=== PATIENT | male | born 1935 | race Caucasian/White ===

== ENCOUNTER 2018-10-25 21:28 | Inpatient (IN) | payer MEDICARE, SELFPAY ==
--- NOTE | 2018-10-25 21:33 | ED.GENADULT ---
HPI - General Adult General Chief complaint: Fall Stated complaint: GLF Lt Hip Pain Time Seen by Provider: 10/25/18 21:28 Source: patient and EMS Mode of arrival: EMS Limitations: no limitations History of Present Illness HPI narrative: 83-year-old male here for evaluation of left hip pain. 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 He was unable to ambulate afterwards. Does have pain in his left hip. Has chronic pain in his right shoulder and states that his shoulder feels better today than what it did yesterday. He did not hit his head. No loss of consciousness. Not on blood thinners. No neck pain. Brought in by EMS. Related Data Home Medications Medication Instructions Recorded Confirmed amlodipine 10 mg PO DAILY 10/25/18 10/25/18 aspirin [Adult Low Dose Aspirin] 81 mg PO DAILY 10/25/18 10/25/18 cholecalciferol (vitamin D3) 1,000 unit PO DAILY 10/25/18 10/25/18 [Vitamin D3] finasteride 5 mg PO DAILY 10/25/18 10/25/18 furosemide 20 mg PO QAM 10/25/18 10/25/18 losartan 100 mg PO DAILY 10/25/18 10/25/18 metoprolol succinate 100 mg PO DAILY 10/25/18 10/25/18 tamsulosin 0.4 mg PO DAILY 10/25/18 10/25/18 Allergies Allergy/AdvReac Type Severity Reaction Status Date / Time Hydrochlorothiazide Allergy Unknown Uncoded 07/09/17 12:07 Lisinopril Allergy Unknown Uncoded 07/09/17 12:07 Rosuvastatin Allergy Unknown Uncoded 07/09/17 12:07 Review of Systems Constitutional Denies headache(s) and Denies weakness ENT Ears, Nose, Mouth, and Throat: Denies vertigo, Denies dizziness, Denies headache(s) and Denies disequilibrium Cardiovascular Denies chest pain, Denies syncope and Denies dyspnea Respiratory Denies dyspnea Gastrointestinal Gastrointestinal: Denies abdominal pain Musculoskeletal Denies tingling Comments: Left hip pain, right shoulder pain Integumentary/Breasts Denies rash Neurologic Denies burning sensations, Denies confusion, Denies vertigo, Denies dizziness, Denies syncope, Denies headache(s), Denies tingling, Denies paresthesias, Denies disequilibrium and Denies weakness Psychiatric Denies confusion Hematologic/Lymphatic Denies easy bleeding and Denies easy bruising [facility] Medical History (Updated 10/25/18 @ 22:35 by Rex Cotto DO) Hypertension (Acute) Social History housing: assisted living facility Social History housing: assisted living facility Exam Initial Vital Signs Initial Vital Signs: Vital Signs Temperature 98.4 F 10/25/18 21:34 Pulse Rate 81 10/25/18 21:34 Respiratory Rate 20 10/25/18 21:34 Blood Pressure 245/95 H 10/25/18 21:34 Pulse Oximetry 95 10/25/18 21:34 Const General: cooperative, comfortable, well developed, well groomed and No acute distress Orientation: alert and awake HENMT Head: normal to inspection and normocephalic Resp Effort & Inspection: normal respiratory effort Auscultation: clear to auscultation bilaterally Cardio Rate: regular rate Rhythm: regular rhythm Pulses: radial pulses present and dorsalis pedis present on the left GI Inspection: non-distended Palpation: soft Back/Spine/Pelvis Cervical Spine: No cervical spasm and No cervical spinal tenderness Skin Lesions: no lesions Rashes: no rashes Neuro General: awake Cognition: normal cognition Speech: speech normal Extrem General: No edema Other: Patient able to straight leg raise on the right. Patient able to do somewhat of a leg raise on the left however limited secondary to pain. Does have tenderness palpation around the left hip Psych Appearance: grossly normal and well kempt Scores GCS Radha coma scale eye opening: Spontaneous Radha coma scale verbal response: Orientated Radha coma scale motor response: Obey commands Radha coma scale total score: 15 Course Orders Ordered: ED Orders 10/25/18 21:50 Complete Blood Count AUTO DIFF Stat Comprehensive Metabolic Panel Stat Lipase Stat Type and Screen Stat 10/25/18 21:54 XR hip w pel if done LT 2V Stat 10/25/18 22:17 Consult to Physician Stat Vital Signs - 8 hr 10/25/18 21:34 Temperature 98.4 F Pulse Rate 81 Respiratory Rate 20 Blood Pressure 245/95 H Pulse Oximetry 95 Medical Decision Making Lab Data Lab results reviewed: Yes I reviewed the patient's lab results. Result diagrams: 10/25/18 21:50 10/25/18 21:50 Lab Results 10/25/18 10/25/18 Range/Units 21:50 21:50 WBC 10.0 (4.5-11.0) X10^3/uL RBC 4.97 (4.5-5.9) X10^6/uL Hgb 15.4 (13.5-17.5) g/dL Hct 45.3 (41-53) % MCV 91.1 (80-100) fL MCH 31.1 (26-34) PG MCHC 34.1 (30-36) % RDW 14.6 (11.6-14.8) % Plt Count 263 (150-400) X10^3/uL Neut % (Auto) 81.6 H (50-75) % Lymph % (Auto) 10.2 L (25-40) % [place] % (Auto) 6.7 (3-14) % Eos % (Auto) 1.1 L (2-4) % Baso % (Auto) 0.4 (0-2) % Neut # (Auto) 8100 H (7061-2386) /uL Lymph # (Auto) 1000 L (9043-2311) /uL [place] # (Auto) 700 (0-900) /uL Eos # (Auto) 100 (0-450) /uL Baso # (Auto) 0 (0-100) /uL Sodium 141 (137-145) mmol/L Potassium 3.2 L (3.4-5.1) mmol/L Chloride 105 (98-107) mmol/L Carbon Dioxide 29 (22-32) mmol/L BUN 17 (9-20) mg/dL Creatinine 0.90 (0.66-1.25) mg/dL Estimated GFR > 60.0 (>60) mL/min BUN/Creatinine Ratio 18.9 (6-22) Glucose 113 H (80-110) mg/dL Calcium 9.9 (8.4-10.2) mg/dL Total Bilirubin 0.7 (0.2-1.3) mg/dL AST 18 (17-59) IU/L ALT 24 (21-72) IU/L Alkaline Phosphatase 105 (38-126) U/L Total Protein 7.4 (6.3-8.2) g/dL Albumin 4.1 (3.5-5.0) g/dL Globulin 3.3 (1.7-4.1) g/dL Albumin/Globulin Ratio 1.2 (1.0-2.8) Lipase 93 (23-300) U/L Imaging Data Left hip x-ray: Attestation: I personally reviewed and interpreted this imaging study as follows: My impression: Left femoral neck fracture ECG Data Attestation: I personally reviewed and interpreted this ECG as follows: Prior ECG tracings: not available for review Interpretation: Sinus rhythm Ventricular rate 87 Normal axis Frequent PACs Normal QRS Normal QTC Nonspecific ST T wave changes MDM Narrative Medical decision making narrative: Patient with a left femoral neck fracture on the x-ray. This does appear to be a mechanical fall. He had no prodromal symptoms prior to the fall. He is not on blood thinners. I did discuss the case with Dr. Booth with Orthopedics. A consult was placed for him. Discussed the case with CANDICE Johns the night hospitalist who will admit the patient. Discussed admission with the patient and his daughter was at bedside. They expressed understanding and agreement plan. Discharge Plan Departure Patient Disposition: Admitted As Inpatient Clinical Impression: Closed hip fracture Qualifiers: Encounter type: initial encounter Laterality: left Qualified Code(s): S72.002A - Fracture of unspecified part of neck of left femur, initial encounter for closed fracture Hypertension Qualifiers: Hypertension type: unspecified Qualified Code(s): I10 - Essential (primary) hypertension Admit Date/Time: 10/25/18 22:20 Admit Provider: Stefania Johns
[2018-10-25 21:34] VITALS: BP 245/95; PULSE 81; RESP 20; TEMP 36.9; O2SAT 95
--- NOTE | 2018-10-25 21:54 | DI.RAD.S_ITS ---
PROCEDURE: XR HIP W PEL IF DONE LT 2V INDICATIONS: Left hip pain after fall TECHNIQUE: AP pelvis with lateral view(s) of the left hip(s). COMPARISON: None. FINDINGS: Bones: No fractures or dislocations. Severe right hip osteoarthritic degenerative changes with joint space narrowing, subchondral sclerosis, subchondral cyst formation, marginal osteophytosis. There is deformity of the left humeral head/neck may be due to trauma versus osteoarthritis. Postsurgical changes compatible with right hip arthroplasty. Pelvic ring appears intact. No suspicious bony lesions. Soft tissues: The visualized bowel gas pattern is normal. No suspicious soft tissue calcifications. IMPRESSION: Deformity of the left humeral head and neck which could be due to osteoarthritis versus traumatic injury. Recommend CT or MRI scan of the left hip for further evaluation. Dictated by: Caren Lilly MD, PhD on 10/26/2018 at 8:11 Approved by: Caren Lilly MD, PhD on 10/26/2018 at 8:14
[2018-10-25 22:04] LABS: Add Manual Diff / Slide Review NO; Basophils Absolute Auto 0 /uL (0-100); Basophils Percent Auto 0.4 % (0-2); Eosinophils Absolute Auto 100 /uL (0-450); Eosinophils Percent Auto 1.1 % (2-4); Hematocrit 45.3 % (41-53); Hemoglobin 15.4 g/dL (13.5-17.5); Lymphocytes Absolute Auto 1000 /uL (1100-4500); Lymphocytes Percent Auto 10.2 % (25-40); Mean Corpuscular HGB Conc 34.1 % (30-36); Mean Corpuscular Hemoglobin 31.1 PG (26-34); Mean Corpuscular Volume 91.1 fL (80-100); Monocytes Absolute Auto 700 /uL (0-900); Monocytes Percent Auto 6.7 % (3-14); Neutrophils Absolute Auto 8100 /uL (1500-7000); Neutrophils Percent Auto 81.6 % (50-75); Platelet Count 263 X10^3/uL (150-400); Red Blood Cell Count 4.97 X10^6/uL (4.5-5.9); Red Cell Distribution Width 14.6 % (11.6-14.8)
[2018-10-25 22:11] LABS: Alanine Aminotransferase 24 IU/L (21-72); Albumin 4.1 g/dL (3.5-5.0); Albumin Globulin Ratio 1.2 (1.0-2.8); Alkaline Phosphatase 105 U/L (38-126); Aspartate Aminotransferase 18 IU/L (17-59); BUN Creatinine Ratio 18.9 (6-22); Bilirubin Total 0.7 mg/dL (0.2-1.3); Blood Urea Nitrogen 17 mg/dL (9-20); Calcium 9.9 mg/dL (8.4-10.2); Carbon Dioxide 29 mmol/L (22-32); Chloride 105 mmol/L (98-107); Estimated Glomerular Filt Rate > 60.0 mL/min (>60); Globulin 3.3 g/dL (1.7-4.1); Glucose 113 mg/dL (80-110); HEMOLYSIS < 15 (0-50); Lipase 93 U/L (23-300); Potassium 3.2 mmol/L (3.4-5.1); Sodium 141 mmol/L (137-145); Total Protein 7.4 g/dL (6.3-8.2)
[2018-10-25 22:41] VITALS: BP 201/87; PULSE 86; RESP 18; O2SAT 100
--- NOTE | 2018-10-25 22:55 | DI.RAD.S_ITS ---
PROCEDURE: XR SHOULDER RT MIN 2V INDICATIONS: pain after fall TECHNIQUE: 2 views of the shoulder were acquired. COMPARISON: None. FINDINGS: Bones: No fractures or dislocations. No suspicious bony lesions. Visualized ribs appear intact. Severe right glenohumeral joint osteoarthritis. Soft tissues: No suspicious soft tissue calcifications. IMPRESSION: No fracture. No acute osseous lesion. If symptoms and/or clinical suspicion for pathology persists, further assessment with repeat radiographs (7-10 days) or advanced imaging (e.g. CT, MRI or bone scan) may be helpful. Dictated by: Caren Lilly MD, PhD on 10/26/2018 at 8:16 Approved by: Caren Lilly MD, PhD on 10/26/2018 at 8:17
--- NOTE | 2018-10-25 23:17 | PM.HP.1 ---
History of Present Illness Date Patient Seen: 10/25/18 Time Patient Seen: 22:45 Chief complaint: GLF Left Hip Pain Narrative: Jacob Rosenbaum is an 83-year-old male resident at [facility] in [place] who was in his usual state of health and was reaching for a book on the book shelf when he bent over and fell on his right shoulder and left hip. He is a bit of a difficult historian as he does not appear to be oriented to time. Apparently this occurred yesterday and was not brought in until today. The daughter and son-in-law are in the room and state that when he called them to let them know that he had fallen, they thought he was going to go to [facility] and quickly found out that he had actually directed the ambulance to take him to [facility]. He does endorse pain on his left hip but denies any pain in either of her shoulders. He did state that he has chronic pain in his left shoulder he states due to having 8 cardiac stents placed approximately 2 years ago at [facility] in [place]. 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 He has a PCP, Dr. Goldberg in [place] and has been being worked up for lower extremity swelling. He had labs drawn at Dr. Goldberg' office and a chest x-ray done at [facility] on Friday of this week and was due to have a follow-up appointment with him next Friday. He states he has been very dizzy and when he gets up from a sitting or lying position he gets very lightheaded and has had frequent falls as a result of this. He denies shortness of breath, palpitations, chest pain, nausea or vomiting, abdominal pain, diarrhea, peripheral neuropathy. He does endorse having urinary frequency and incontinence but was unable to tell me how long this has been going on. He also states he has had foot swelling that started shortly after being admitted [facility] and it is presumed that their diet may be contributing to his increased swelling. He did have some episodes of low blood pressure however this seems to have subsided. Patient History Medical History (Updated 10/25/18 @ 23:39 by DARIA Arias) CHF (congestive heart failure) (Suspected) Urinary incontinence (Chronic) BPH (benign prostatic hyperplasia) (Chronic) Fracture of femoral neck, left, closed (Acute) Hyperlipidemia (Chronic) Hypertension (Acute) Surgical History (Updated 10/25/18 @ 23:39 by DARIA Arias) History of right hip replacement (Chronic) History of coronary artery stent placement (Chronic) Hx of CABG (Chronic) Family History (Updated 10/25/18 @ 23:34 by DARIA Arias) Mother Polio Father No problems noted. Social History housing: assisted living facility Family & Social History Family History (Updated 10/25/18 @ 23:34 by DARIA Arias) Mother Polio Father No problems noted. 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 Tobacco & Substance use: Forty year pack history, quit 20 years ago Denies alcohol use Denies illegal drug use or history of Meds Home Medications Medication Instructions Recorded Confirmed Type amlodipine 10 mg PO DAILY 10/25/18 10/25/18 History aspirin [Adult Low Dose Aspirin] 81 mg PO DAILY 10/25/18 10/25/18 History cholecalciferol (vitamin D3) 1,000 unit PO DAILY 10/25/18 10/25/18 History [Vitamin D3] finasteride 5 mg PO DAILY 10/25/18 10/25/18 History furosemide 20 mg PO QAM 10/25/18 10/25/18 History losartan 100 mg PO DAILY 10/25/18 10/25/18 History metoprolol succinate 100 mg PO DAILY 10/25/18 10/25/18 History tamsulosin 0.4 mg PO DAILY 10/25/18 10/25/18 History Allergies Allergy/AdvReac Type Severity Reaction Status Date / Time Hydrochlorothiazide Allergy Unknown Uncoded 07/09/17 12:07 Lisinopril Allergy Unknown Uncoded 07/09/17 12:07 Rosuvastatin Allergy Unknown Uncoded 07/09/17 12:07 Review of Systems Review of Systems All systems reviewed & are unremarkable except as noted in HPI and below Exam Vital Signs (past 8 hours): - 10/25/18 21:34 10/25/18 22:41 Temperature 98.4 F Pulse Rate 81 86 Respiratory Rate 20 18 Blood Pressure 245/95 H Blood Pressure [Right Arm] 201/87 H Pulse Oximetry 95 100 Oxygen Delivery Method Room Air Narrative Exam Narrative: Gen: Alert, oriented 83 y.o. well-developed male appears comfortable HEENT: normocephalic, atraumatic, conjunctiva clear, sclera non-icteric, oral mucosa pink and moist Neck: supple, full ROM Resp: Lungs CTA, non-labored breathing CV: RRR, no murmur or rubs Abd: soft, non-tender, normoactive BTs Skin: no lesions or rashes, dry and intact Neuro: Oriented to person and place however he is not oriented to time Extremities: Left leg is contracted upwards however he is able to lift it approximately 4 inches off the bed Psych: Pleasant, normal mood and affect Objective Labs Result Diagrams: 10/25/18 21:50 10/25/18 21:50 Labs: Laboratory Results - last 24 hr 10/25/18 10/25/18 10/25/18 21:50 21:50 21:50 WBC 10.0 RBC 4.97 Hgb 15.4 Hct 45.3 MCV 91.1 MCH 31.1 MCHC 34.1 RDW 14.6 Plt Count 263 Neut % (Auto) 81.6 H Lymph % (Auto) 10.2 L [place] % (Auto) 6.7 Eos % (Auto) 1.1 L Baso % (Auto) 0.4 Neut # (Auto) 8100 H Lymph # (Auto) 1000 L [place] # (Auto) 700 Eos # (Auto) 100 Baso # (Auto) 0 Sodium 141 Potassium 3.2 L Chloride 105 Carbon Dioxide 29 BUN 17 Creatinine 0.90 Estimated GFR > 60.0 BUN/Creatinine Ratio 18.9 Glucose 113 H Calcium 9.9 Total Bilirubin 0.7 AST 18 ALT 24 Alkaline Phosphatase 105 Total Protein 7.4 Albumin 4.1 Globulin 3.3 Albumin/Globulin Ratio 1.2 Lipase 93 Blood Type A Positive Antibody Screen Negative Assessment & Plan Assessment & Plan narrative: Jacob Rosenbaum is a pleasant 83-year-old male who had a mechanical fall at his assisted living facility and sustained a left femoral neck fracture. He will be admitted to the service of the hospitalists and Dr. Booth has graciously agreed to provide orthopedic consultation. 1. Left impacted femoral neck fracture, acute, present on admission Orthopedic surgery to consult Brush catheter has been placed due to current immobility X-ray of the affected shoulder was done and there does not appear to be a fracture Patient currently on a heart healthy diet, NPO will be ordered 1 night prior to surgery if he has it done here 2. Suspected congestive heart failure, intermittent Patient has had recent lower extremity swelling, on Friday had labs drawn and a chest x-ray done at [facility] Brain naturetic peptide is pending Complete echocardiogram to be done tomorrow May need cardiology consult or cardiology clearance for surgery 3. 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 Essential hypertension, stable, present on admission Continue home doses of amlodipine, losartan and metoprolol Patient is admitted as an inpatient as his stay is anticipated to exceed 2 midnights. FEN: 0.45 NS at 100 ml/hour, heart healthy diet, chemistries in the am VTE Prophylaxis: Bilateral SCDs Disposition: Likely rehab post surgery Code status: Full Code Admission time: 75 minutes Meds reconciled: Partial based on current med list Time Spent With Patient Time with patient: 25 - 35 minutes Scores GCS [place] coma scale eye opening: Spontaneous Radha coma scale verbal response: Orientated [place] coma scale motor response: Obey commands [place] coma scale total score: 15 Quality VTE Deep Vein Thrombosis/Pulmonary Embolism Present on Admission: No
--- NOTE | 2018-10-25 23:41 | P.HP_ITS ---
History of Present Illness Date Patient Seen: 10/25/18 Time Patient Seen: 22:45 Chief complaint: GLF Left Hip Pain Narrative: Jacob Rosenbaum is an 83-year-old male resident at [facility] in [place] who was in his usual state of health and was reaching for a book on the book shelf when he bent over and fell on his right shoulder and left hip. He is a bit of a difficult historian as he does not appear to be oriented to time. Apparently this occurred yesterday and was not brought in until today. The daughter and son-in-law are in the room and state that when he called them to let them know that he had fallen, they thought he was going to go to [facility] and quickly found out that he had actually directed the ambulance to take him to [facility]. He does endorse pain on his left hip but denies any pain in either of her shoulders. He did state that he has chronic pain in his left shoulder he states due to having 8 cardiac stents placed approximately 2 years ago at [facility] in [place]. 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 He has a PCP, Dr. Goldberg in [place] and has been being worked up for lower extremity swelling. He had labs drawn at Dr. Goldberg' office and a chest x-ray done at [facility] on Friday of this week and was due to have a follow-up appointment with him next Friday. He states he has been very dizzy and when he gets up from a sitting or lying position he gets very lightheaded and has had frequent falls as a result of this. He denies shortness of breath, palpitations, chest pain, nausea or vomiting, abdominal pain, diarrhea, peripheral neuropathy. He does endorse having urinary frequency and incontinence but was unable to tell me how long this has been going on. He also states he has had foot swelling that started shortly after being admitted [facility] and it is presumed that their diet may be contributing to his increased swelling. He did have some episodes of low blood pressure however this seems to have subsided. Patient History Medical History (Updated 10/25/18 @ 23:39 by DARIA Arias) CHF (congestive heart failure) (Suspected) Urinary incontinence (Chronic) BPH (benign prostatic hyperplasia) (Chronic) Fracture of femoral neck, left, closed (Acute) Hyperlipidemia (Chronic) Hypertension (Acute) Surgical History (Updated 10/25/18 @ 23:39 by DARIA Arias) History of right hip replacement (Chronic) History of coronary artery stent placement (Chronic) Hx of CABG (Chronic) Family History (Updated 10/25/18 @ 23:34 by DARIA Arias) Mother Polio Father No problems noted. Social History housing: assisted living facility Family & Social History Family History (Updated 10/25/18 @ 23:34 by DARIA Arias) Mother Polio Father No problems noted. 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 Tobacco & Substance use: Forty year pack history, quit 20 years ago Denies alcohol use Denies illegal drug use or history of Meds Home Medications Medication Instructions Recorded Confirmed Type amlodipine 10 mg PO DAILY 10/25/18 10/25/18 History aspirin [Adult Low Dose Aspirin] 81 mg PO DAILY 10/25/18 10/25/18 History cholecalciferol (vitamin D3) 1,000 unit PO DAILY 10/25/18 10/25/18 History [Vitamin D3] finasteride 5 mg PO DAILY 10/25/18 10/25/18 History furosemide 20 mg PO QAM 10/25/18 10/25/18 History losartan 100 mg PO DAILY 10/25/18 10/25/18 History metoprolol succinate 100 mg PO DAILY 10/25/18 10/25/18 History tamsulosin 0.4 mg PO DAILY 10/25/18 10/25/18 History Allergies Allergy/AdvReac Type Severity Reaction Status Date / Time Hydrochlorothiazide Allergy Unknown Uncoded 07/09/17 12:07 Lisinopril Allergy Unknown Uncoded 07/09/17 12:07 Rosuvastatin Allergy Unknown Uncoded 07/09/17 12:07 Review of Systems Review of Systems All systems reviewed & are unremarkable except as noted in HPI and below Exam Vital Signs (past 8 hours): - 10/25/18 21:34 10/25/18 22:41 Temperature 98.4 F Pulse Rate 81 86 Respiratory Rate 20 18 Blood Pressure 245/95 H Blood Pressure [Right Arm] 201/87 H Pulse Oximetry 95 100 Oxygen Delivery Method Room Air Narrative Exam Narrative: Gen: Alert, oriented 83 y.o. well-developed male appears comfortable HEENT: normocephalic, atraumatic, conjunctiva clear, sclera non-icteric, oral mucosa pink and moist Neck: supple, full ROM Resp: Lungs CTA, non-labored breathing CV: RRR, no murmur or rubs Abd: soft, non-tender, normoactive BTs Skin: no lesions or rashes, dry and intact Neuro: Oriented to person and place however he is not oriented to time Extremities: Left leg is contracted upwards however he is able to lift it approximately 4 inches off the bed Psych: Pleasant, normal mood and affect Objective Labs Result Diagrams: 10/25/18 21:50 10/25/18 21:50 Labs: Laboratory Results - last 24 hr 10/25/18 10/25/18 10/25/18 21:50 21:50 21:50 WBC 10.0 RBC 4.97 Hgb 15.4 Hct 45.3 MCV 91.1 MCH 31.1 MCHC 34.1 RDW 14.6 Plt Count 263 Neut % (Auto) 81.6 H Lymph % (Auto) 10.2 L [place] % (Auto) 6.7 Eos % (Auto) 1.1 L Baso % (Auto) 0.4 Neut # (Auto) 8100 H Lymph # (Auto) 1000 L [place] # (Auto) 700 Eos # (Auto) 100 Baso # (Auto) 0 Sodium 141 Potassium 3.2 L Chloride 105 Carbon Dioxide 29 BUN 17 Creatinine 0.90 Estimated GFR > 60.0 BUN/Creatinine Ratio 18.9 Glucose 113 H Calcium 9.9 Total Bilirubin 0.7 AST 18 ALT 24 Alkaline Phosphatase 105 Total Protein 7.4 Albumin 4.1 Globulin 3.3 Albumin/Globulin Ratio 1.2 Lipase 93 Blood Type A Positive Antibody Screen Negative Assessment & Plan Assessment & Plan narrative: Jacob Rosenbaum is a pleasant 83-year-old male who had a mechanical fall at his assisted living facility and sustained a left femoral neck fracture. He will be admitted to the service of the hospitalists and Dr. Booth has graciously agreed to provide orthopedic consultation. 1. Left impacted femoral neck fracture, acute, present on admission * Orthopedic surgery to consult * Brush catheter has been placed due to current immobility * X-ray of the affected shoulder was done and there does not appear to be a fracture * Patient currently on a heart healthy diet, NPO will be ordered 1 night prior to surgery if he has it done here 2. Suspected congestive heart failure, intermittent * Patient has had recent lower extremity swelling, on Friday had labs drawn and a chest x-ray done at [facility] * Brain naturetic peptide is pending * Complete echocardiogram to be done tomorrow * May need cardiology consult or cardiology clearance for surgery 3. 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 Essential hypertension, stable, present on admission * Continue home doses of amlodipine, losartan and metoprolol Patient is admitted as an inpatient as his stay is anticipated to exceed 2 midnights. FEN: 0.45 NS at 100 ml/hour, heart healthy diet, chemistries in the am VTE Prophylaxis: Bilateral SCDs Disposition: Likely rehab post surgery Code status: Full Code Admission time: 75 minutes Meds reconciled: Partial based on current med list Time Spent With Patient Time with patient: 25 - 35 minutes Scores GCS Radha coma scale eye opening: Spontaneous Radha coma scale verbal response: Orientated Radha coma scale motor response: Obey commands Radha coma scale total score: 15 Quality VTE Deep Vein Thrombosis/Pulmonary Embolism Present on Admission: No
[2018-10-25 23:49] LABS: B Type Natriuretic Peptide 425 (<100)
[2018-10-25 23:54] VITALS: BP 185/93; PULSE 86; RESP 16; O2SAT 100
[2018-10-26] VITALS (13 sets, daily range): BP systolic 151–196; BP diastolic 74–113; PULSE 62–104; RESP 15–22; TEMP 36.4–37.1; O2SAT 94–98; BMI 28.7
[2018-10-26] MEDS: SODIUM CHLORIDE 0.45% 1,000 ML 100 ML IV (00:13)
[2018-10-26] MEDS: POTASSIUM CHLORIDE 20 MEQ TAB 40 MEQ PO (00:57)
[2018-10-26 05:26] LABS: Alanine Aminotransferase 27 IU/L (21-72); Albumin 3.8 g/dL (3.5-5.0); Albumin Globulin Ratio 1.3 (1.0-2.8); Alkaline Phosphatase 89 U/L (38-126); Aspartate Aminotransferase 17 IU/L (17-59); Bilirubin Total 0.7 mg/dL (0.2-1.3); Blood Urea Nitrogen 14 mg/dL (9-20); Calcium 9.4 mg/dL (8.4-10.2); Carbon Dioxide 29 mmol/L (22-32); Chloride 106 mmol/L (98-107); Estimated Glomerular Filt Rate > 60.0 mL/min (>60); Glucose 104 mg/dL (80-110); HEMOLYSIS < 15 (0-50); Magnesium 2.2 mg/dL (1.6-2.3); Potassium 3.4 mmol/L (3.4-5.1); Sodium 143 mmol/L (137-145); Total Protein 6.8 g/dL (6.3-8.2)
[2018-10-26] MEDS: HYDRALAZINE 20 MG/ML VIAL 10 MG IV (05:31)
--- NOTE | 2018-10-26 07:21 | DI.RAD.S_ITS ---
PROCEDURE: XR CHEST 1V INDICATIONS: cardiac clearance TECHNIQUE: One view of the chest was acquired. COMPARISON: None. FINDINGS: Surgical changes and devices: Multiple median sternotomy wires are noted. Postoperative changes from prior revascularization procedure. Surgical wire noted in the midline lower neck. Lungs and pleura: Minimal diffuse interstitial prominence likely chronic in etiology. No focal consolidation. No pleural effusions or pneumothorax. Mediastinum: Mediastinal contours appear normal. Heart size is normal. Bones and chest wall: No suspicious bony lesions. Overlying soft tissues appear unremarkable. IMPRESSION: Minimal diffuse interstitial prominence favored to represent chronic interstitial disease. No acute cardiopulmonary abnormalities. Dictated by: Donnie Boykin M.D. on 10/26/2018 at 8:04 Approved by: Donnie Boykin M.D. on 10/26/2018 at 8:08
[2018-10-26] MEDS: HYDROCODONE/ACET 5/325 TABLET 1 TAB PO ×2 (08:03→13:07)
--- NOTE | 2018-10-26 09:00 | DI.ECHO.S_ITS ---
[facility] +---------+ [facility] +---------+ : : [address] : : : : [id number] : : : : Phone: [phone] Echocardiogram Report + + :Name: CHRISTINA CINTRON Study Date: 10/26/2018 Height: 68 in : :[facility] Weight: 189 lb : : Gender: Male BSA: 2.0 m2 : :: 1935 Age: 83 yrs BP: 154/74 mmHg: :Reason For Study: Pre-surgical evaluation : : Performed By: Chata Wilson : :Referring: DARA KIM : + + Interpretation Summary The patient was in atrial fibrillation with heart rates between 80-99 bpm during the exam. Mild concentric left ventricular hypertrophy with ejection fraction 55-60%. Moderately dilated left atrium. Mildly dilated right atrium. No valvular abnormality. Procedure: A two-dimensional transthoracic echocardiogram with color flow and Doppler was performed. The study quality was technically adequate. There is no prior echocardiogram noted for this patient. The patient was in atrial fibrillation with heart rates between 80-99 bpm during the exam. Left Ventricle: The left ventricle is mildly dilated. There is mild concentric left ventricular hypertrophy. The ejection fraction is estimated to be 55-60%. There are no focal wall motion abnormalities. Diastolic function could not be accurately assessed due to atrial fibrillation. Right Ventricle: The right ventricle grossly appears normal in size with probable normal systolic function. Atria: The left atrium is moderately dilated. The right atrium is mildly dilated. The interatrial septum is intact with no evidence for an atrial septal defect. Mitral Valve: The mitral valve is normal in structure and function. There is no mitral regurgitation noted. Aortic Valve: The aortic valve opens well. No aortic regurgitation is present. Tricuspid Valve: The tricuspid valve is normal in structure and function. No tricuspid regurgitation. Pulmonic Valve: The pulmonic valve is not well visualized. Great Vessels: The aortic root is normal size. The dimensions of the ascending aorta are normal. The aortic arch is normal in size. The IVC is of normal diameter and collapses greater than 50% with a sniff. This suggests a low right atrial pressure of 3 mm Hg. Pericardium/ Pleura There is no pericardial effusion. There is no pleural effusion. MMode/2D Measurements & Calculations LVIDd: 5.8 cm Ao root diam: 3.5 cm LVIDs: 4.0 cm Aortic Jxn: 2.6 cm FS: 31.3 % asc Aorta Diam: 3.2 cm EPSS: 1.6 cm Ao Arch Diam (Prox Trans): 2.7 cm IVSd: 1.3 cm LVPWd: 1.2 cm LV donovan. diameter/BSA (cm/m^2): 2.9 LV sys. diameter/BSA (cm/m^2): 2.0 LA dimension: 4.4 cm RA long axis: 4.7 cm LA A2 area: 26.6 cm2 RA area: 20.1 cm2 LA A4 area: 23.9 cm2 RA vol: 73.3 ml LA length (vol): 6.0 cm RA : 36.7 ml/m2 LA vol: 90.0 ml IVC diam: 1.2 cm LA vol index: 45.1 ml/m2 Doppler Measurements & Calculations Ao V2 max: 192.3 cm/sec MV E max deny: 98.6 cm/sec Ao V2 mean: 125.7 cm/sec MV A max deny: 131.1 cm/sec Ao max P.8 mmHg MV E/A: 0.75 Ao mean P.6 mmHg Med Peak E' Deny: 4.4 cm/sec Ao V2 VTI: 34.2 cm E/E' med: 22.3 Lat Peak E' Deny: 8.1 cm/sec E/E' lat: 12.2 E/e' average: 17.2 MV dec time: 0.24 sec MV P1/2t: 70.5 msec MV P1/2t max deny: 98.9 cm/sec MVA(P1/2t): 3.1 cm2 Electronically signed by: Magui Winslow on Reading Physician:10/26/2018 12:32 PM
--- NOTE | 2018-10-26 09:00 | DI.CT.S_ITS ---
PROCEDURE: CT PEL WO CON INDICATIONS: rulem out left hip fracture/hairline fracture TECHNIQUE: Noncontrast 3 mm axial sections acquired through the bony pelvis, with coronal and sagittal reformatting. COMPARISON: [facility], CR, XR HIP W PEL IF DONE LT 2V, 10/25/2018, 21:57. [facility], CR, PELVIS 1 OR 2 VIEWS, 07/30/2006, 20:12. FINDINGS: Image quality: Excellent. Bones: -No acute fracture identified. There is diffuse osteopenia. -Severe ott[place]-f[place] left hip joint space narrowing with sclerosis and subchondral cystic change and prominent osteophytes, (3/44). -Right hip total arthroplasty is in the expected position. No periprosthetic lucency to suggest loosening. -Lower lumbar spine DDD. SI joints are symmetric. A suspicious focal lesion. Soft tissues: -No hematoma. Brush catheter in the urinary bladder. Small fat containing left inguinal hernia. -No dilated loops of bowel. Appendix is normal. No free fluid. Vasculature: -Inferior aorta is partially visualized. 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 -Right common iliac artery aneurysm measuring 3.5 cm, (3/36). -Right internal iliac artery aneurysm measuring 5.2 cm, (3/48). -Left common iliac artery aneurysm measuring 2.5 cm, (3/40). -Left internal iliac artery aneurysmal dilatation measuring 1.7 cm, (3/53). IMPRESSION: 1. No acute fracture identified. 2. Severe end-stage left hip DJD. 3. Right hip total arthroplasty is normal. 4. 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 Dictated by: Ap Larson M.D. on 10/26/2018 at 9:33 Approved by: Ap Larson M.D. on 10/26/2018 at 9:50
--- NOTE | 2018-10-26 09:05 | CM.DANOTE ---
Addendum entered by Bertha Browne R.N. 10/26/18 12:37: Met with daughter, Deanna, and , Riaz. They confirmed that patient has been at [facility] for approximately a month, and the transition has been difficult for him. As far as care needs, he does not get help with showers, is on alacarte services, not yet at level 1. Point of contact at [facility] is Lena Rodas LPN. Her number is: [phone] ext [phone]. Yolie is manager solution, and her extension is: [phone]. Family agrees, best plan is going back to [facility] if he has no fracture, since he has already struggled with the move. Addendum entered by Bertha Browne R.N. 10/26/18 12:09: Discussed patient at team rounds. Dr. Oh stated, unsure if fracture. Patient will be having a CT of his hip today. Based on findings, will see if patient will be able to have P.T. consult. Original Note: DCP: Case received, EMR reviewed and met with patient. Introduced self and role. Was able to get some history from patient, as well as what is indicated in his record. Touched base briefly with daughter, Deanna Bhagat, over the phone. DCP assessment completed with information currently available. Patient is an 83 year old male who admitted yesterday evening to the care of the hospitalist team. PCP: Dr. Goldberg. Payer: confirmed: Medicare. Patient came to the hospital via ambulance secondary to a fall. He holds diagnosis of L. Femoral Neck Fracture. Patient lives at [facility], and had been bending over picking up a magazine, and fell out of his chair landing on his left hip. Briefly spoke to his daughter, Deanna, on the phone, but conversation was limited for she was speaking to patient. She stated that she will be here to see patient later today. Patient did give some history, and confirmed that he does live at [facility]. Stated that he uses a power chair to go to meals, and lives on the 3rd floor. Stated that he uses a walker and cane, has help when needed with showers and medications. P: DCP to follow closely. Patient may need detention for rehab before going back to [facility]. Will discuss with physical therapy team. Bertha Browne RN/[employer]
[2018-10-26] MEDS: AMLODIPINE 5 MG TABLET 10 MG PO (10:10)
[2018-10-26] MEDS: ASPIRIN EC 81 MG TABLET PO (10:10)
[2018-10-26] MEDS: LOSARTAN 50 MG TABLET 100 MG PO (10:10)
[2018-10-26] MEDS: METOPROLOL ER 50 MG TABLET 100 MG PO (10:11)
[2018-10-26] MEDS: TAMSULOSIN 0.4 MG CAPSULE PO (10:11)
[2018-10-26] MEDS: FINASTERIDE 5 MG TABLET PO (10:11)
[2018-10-26] MEDS: ACETAMINOPHEN 325 MG TABLET 650 MG PO (10:12)
[2018-10-26 13:18] LABS: Bacteria Urine None Seen
[2018-10-26 13:20] LABS: Appearance Urine UA CLEAR; Bilirubin Urine UA NEGATIVE (NEGATIVE); Color Urine UA YELLOW; Glucose Urine UA NEGATIVE (Negative); Ketones Urine UA TRACE (NEGATIVE); Leukocyte Esterase Urine UA 2+ (NEGATIVE); Nitrite Urine UA NEGATIVE (Negative); Occult Blood Urine UA 1+ (Negative); Protein Urine UA NEGATIVE (Negative)
[2018-10-26 13:40] LABS: Culture Indicated Urine Specimen Cultured; RBC Urine 1-5/HPF (0-5/HPF); Squamous Epithelial Cell Urine 0-1 /HPF (0-5/HPF); WBC Urine 5-10/HPF (0-5/HPF)
--- NOTE | 2018-10-26 14:08 | PM.PN.1 ---
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 The patient is resting in bed. He was confused earlier due to narcotic use. He now reports he is in pain approximately +9 out of 10. Discussed XR with Dr. Booth of ortho who does not believe his left hip is fractured. Recommended CT left hip which demonstrates no fracture of his left hip. Discussed his CT results in detail with the patient and his family which were several children and grandchildren. 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 The patient likely has mild vascular dementia and is alert and oriented to person and place (knows hospital but not where city or state). He is still capable of making a decision and states he would like to take a palliative approach with controlling pain and not walking. Discussed increased care needs and private caregivers vs. SNF private pay. Recommended hospice and will provide an informational visit. He denies headache, shortness of breath, chest pain, abdominal pain, nausea, vomiting, fever, chills, dysuria, or diarrhea. He is voiding via Brush catheter without difficulty. He has not had a BM in several days and a bowel regimen has been implemented. Exam Vital Signs (past 8 hours): - 10/26/18 07:50 10/26/18 08:05 Temperature 97.5 F L Pulse Rate 76 Respiratory Rate 18 Blood Pressure 167/98 H Pulse Oximetry 98 98 Oxygen Delivery Method Room Air Oxygen Flow Rate 0 Narrative Exam Narrative: General: Elderly male lying in bed and in no acute distress, does not appear significantly uncomfortbale, well-developed, well-nourished, mild cognitive appropriately interactive HEENT: Normocephalic, atraumatic. External ears without defect. Pupils equal, round, and reactive to light. Anicteric sclerae, moist conjunctivae, and no lid lag. Neck: Supple with full range of motion. No jugular venous distension. No lymphadenopathy or thyromegaly. Cardiovascular: Irregularly irregular without murmurs, rubs, or gallops appreciated Pulmonary: Clear to auscultation bilaterally with no crackles, wheezes, or rhonchi. Normal respiratory effort with no use of accessory muscles. Abdomen: Soft, bowel tones present, nontender, nondistended. No hepatosplenomegaly or masses appreciated. Extremities: No clubbing, cyanosis, or edema. Left leg slightly internally rotated. Skin: Normal temperature, turgor, and texture; no rash, ulcers, or subcutaneous nodules appreciated. Neurological: Cranial nerves grossly intact. Psychiatric: Normal mood and affect. Alert and oriented to person and mostly place. Probable mild vascular dementia with short term memory recall deficit. Objective Labs Result Diagrams: 10/25/18 21:50 10/26/18 04:57 Labs: Laboratory Results - last 24 hr 10/25/18 10/25/18 10/25/18 21:50 21:50 21:50 WBC 10.0 RBC 4.97 Hgb 15.4 Hct 45.3 MCV 91.1 MCH 31.1 MCHC 34.1 RDW 14.6 Plt Count 263 Neut % (Auto) 81.6 H Lymph % (Auto) 10.2 L [place] % (Auto) 6.7 Eos % (Auto) 1.1 L Baso % (Auto) 0.4 Neut # (Auto) 8100 H Lymph # (Auto) 1000 L [place] # (Auto) 700 Eos # (Auto) 100 Baso # (Auto) 0 Sodium 141 Potassium 3.2 L Chloride 105 Carbon Dioxide 29 BUN 17 Creatinine 0.90 Estimated GFR > 60.0 BUN/Creatinine Ratio 18.9 Glucose 113 H Calcium 9.9 Magnesium Total Bilirubin 0.7 AST 18 ALT 24 Alkaline Phosphatase 105 B-Natriuretic Peptide Total Protein 7.4 Albumin 4.1 Globulin 3.3 Albumin/Globulin Ratio 1.2 Lipase 93 Urine Color Urine Appearance Urine pH Ur Specific [place] Urine Protein Urine Glucose (UA) Urine Ketones Urine Occult Blood Urine Nitrate Urine Bilirubin Urine Urobilinogen Ur Leukocyte Esterase Urine RBC Urine WBC Ur Squamous Epith Cells Urine Bacteria Ur Culture Indicated? Blood Type A Positive Antibody Screen Negative 10/25/18 10/26/18 10/26/18 23:26 04:57 13:00 WBC RBC Hgb Hct MCV MCH MCHC RDW Plt Count Neut % (Auto) Lymph % (Auto) [place] % (Auto) Eos % (Auto) Baso % (Auto) Neut # (Auto) Lymph # (Auto) [place] # (Auto) Eos # (Auto) Baso # (Auto) Sodium 143 Potassium 3.4 Chloride 106 Carbon Dioxide 29 BUN 14 Creatinine 0.70 Estimated GFR > 60.0 BUN/Creatinine Ratio 20.0 Glucose 104 Calcium 9.4 Magnesium 2.2 Total Bilirubin 0.7 AST 17 ALT 27 Alkaline Phosphatase 89 B-Natriuretic Peptide 425 H Total Protein 6.8 Albumin 3.8 Globulin 3.0 Albumin/Globulin Ratio 1.3 Lipase Urine Color Yellow Urine Appearance Clear Urine pH 7.0 Ur Specific [place] 1.010 Urine Protein Negative Urine Glucose (UA) Negative Urine Ketones Trace H Urine Occult Blood 1+ H Urine Nitrate Negative Urine Bilirubin Negative Urine Urobilinogen 1.0 Ur Leukocyte Esterase 2+ H Urine RBC 1-5/hpf Urine WBC 5-10/hpf H Ur Squamous Epith Cells 0-1 /hpf Urine Bacteria None seen Ur Culture Indicated? 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 1. Acute on chronic severe end-stage left femoral neck DJD with pain due to GLF, present on admission. Active. -Patient presented with left hip pain after GLF. -Left hip XR and CT pelvis without contrast did not demonstrate left hip fracture but severe end-stage left hip DJD. -Orthopedic surgery consulted, Dr. Booth, who recommended elective left hip arthroplasty after cardiac clearance by his multi media specialist outpatient. Additionally he has multiple aortoiliac aneurysms including a large 5.2 cm aneurysm right internal iliac artery which will need to be addressed prior to surgery. The patient is leaning toward a palliative approach and has refused to follow-up with cardiology the last 2-3 years. -Brush catheter has been placed due to current immobility. -Ordered acetaminophen 975 scheduled three times daily, methocarbomol 50 mg 4 times daily as needed for mild pain, tramadol 4 times daily for moderate pain and hydrocodone 5-325 mg every 4 hours for severe/breakthrough pain. -Ordered PT and OT evaluation and treatment for mobility assessment and recommendations of patient level of care. -Recommended hospice and will arrange for informational visit. -X-ray of the affected shoulder was done and there does not appear to be a fracture 2. Hypokalemia, unclear acuity but likely chronic and related to diuretic, present on admission. Resolved. -Initial potassium 3.2. -Received potassium chloride 40 mEq PO x 1 with correction 3.5. Ordered potassium chloride 40 mEq IV x 1. -Continue to monitor potassium level and replete as necessary. Goal K+ > 4.0. Mg+ 2.2 and goal > 2.0. 3. Chronic atrial fibrillation, present on admission. Active. -Rate controlled on admission. -Continue metoprolol succinate 100 mg daily. Control pain. 4. History of systolic congestive heart failure, present on admission. Not present. -Patient had recent lower extremity swelling on Friday and had labs drawn and a chest x-ray done at [facility] without intervention. -Patient appears euvolemic and mildly dry without lower extremity edema. -Echocardiogram demonstrated mild concentric left ventricular hypertrophy with ejection fraction 55-60%, moderately dilated left atrium, mildly dilated right atrium and no valvular abnormality. CHF ruled out. -Continue home furosemide 20 mg daily. 5. CAD, chronic, present on admission. Presumed stable. -Continue aspirin 81 mg daily. -EKG indicates old infarct, no prior EKGs are available at this facility. 6. Hypertension with multiple aortoiliac aneurysms, chronic, present on admission -Patient initially significantly hypertensive in ED 245/95. Patient has multiple aneurysms and goal SBP < 160 mmHg. -Continue home doses of amlodipine 10 mg daily, furosemide 20 mg daily, losartan 100 mg daily and metoprolol succinate 100 mg daily. -Orderd hydralazine 10 mg Q6H for SBP > 160 mmHg sustained for 30 minutes. Control pain before treating. 7. BPH, chronic, present on admission. Stable. -Patient has BPPV but also dizziness when standing up or ambulating and maybe due to 2 alpha antagonist. Consider leaving Brush for comfort and discontinuing BPH medications. -Held finasteride and tamsulosin. Disposition: Patient likely to discharge to [facility] as early as tomorrow if safe plan in place with increased or 24/ caregiving. Quality VTE Deep Vein Thrombosis/Pulmonary Embolism Present on Admission: No
[2018-10-26] MEDS: METHOCARBAMOL 500 MG TABLET PO (16:09)
--- NOTE | 2018-10-26 16:11 | CM.DPC ---
DCP Cont: Spoke with Dr. Oh, hospitalist, for she had seen patient and had meeting with family. Stated, patient is not a candidate for hip surgery, due to cardiac history and aneurisms. Stated, at this time, he is bed bound. She mentioned that patient may need hospice info visit and 24 hour caregiving going back to [facility]. Spoke with daughter Deanna, and . They are concerned, for they thought he had a fracture, and now he doesn't, and is observation status. At this time, he does not qualify for usp. They are hopeful that he can go back to [facility] with increased care. Have left a message with Lena at [facility], and daughter has been in contact. Spoke to daughter, she stated, [facility] mostly works with [facility]. Spoke to Harleen at [facility], and faxed her over clinicals. Info visit would be at [facility], for they do not leave the [facility] for informational visits. Have not yet heard from Lena, but daughter stated that she spoke to Lena, and they do not do lifts. Asked her if he could go back if bed bound, and she did not ask this question. This telephonic case manager will follow up tomorrow. Daughter would also like this telephonic case manager to follow up with [facility] tomorrow with daily rates private pay. P: DCP to continue to work with family on placement. Hospice information was already faxed. Bertha Browne RN/[employer]
--- NOTE | 2018-10-26 16:15 | PT.IIE ---
Current Diagnoses Hyperlipidemia, unspecified (10/25/18) Localized edema (10/25/18) Surgical History (Last Updated 10/25/18 @ 23:33 by DARIA Arias) History of right hip replacement (Chronic) History of coronary artery stent placement (Chronic) Hx of CABG (Chronic) Medical History (Last Updated 10/25/18 @ 23:39 by DARIA Arias) CHF (congestive heart failure) (Suspected) Urinary incontinence (Chronic) BPH (benign prostatic hyperplasia) (Chronic) Fracture of femoral neck, left, closed (Acute) Hyperlipidemia (Chronic) Hypertension (Acute) Physical Therapy Inpatient Evaluation/Re-Eval M1 PT/OT-IP Prior Functional Status Start: 10/26/18 16:01 Freq: NEEDED Status: Active Protocol: Document 10/26/18 16:03 RS (Rec: 10/26/18 16:15 RS [id number]) Medical Review Prior Functional Status Medical History Reviewed Yes Mobility and Gait mod ind with transfers in/out of bed to/from [facility], didn't really do much walking Activities of Daily Living and IADL's reports being able to take his own shower, get dressed, and toilet without assist. Took meals in the dining segura, did not cook for himself. Prior Functional Level (Other details) has had multiple falls Social History Household Members other Living Arrangements Assisted Living Home Environment Walk in Shower Home Equipment Front Wheel Walker Four Wheel Walker Straight Cane Manual Wheelchair Power Wheelchair/Scooter Employment Status Retired Additional Social History Comment Lives at [facility] with the lowest level of care needed, has had MULTIPLE falls M2 PT-IP Current Condition Start: 10/26/18 16:01 Freq: NEEDED Status: Active Protocol: Document 10/26/18 16:03 RS (Rec: 10/26/18 16:15 RS [id number]) Physical Therapy Current Condition Current Condition Evaluation Date 10/26/18 Treatment Diagnosis L hip/leg pain, debility Onset Date 10/25/18 Weight Bearing Status Weight Bearing Status Weight Bear as Tolerated M3 PT-IP Subjective Start: 10/26/18 16:01 Freq: NEEDED Status: Active Protocol: Document 10/26/18 16:03 RS (Rec: 10/26/18 16:15 RS [id number]) Subjective Physical Therapy Visit Type Type Initial Evaluation Visit Start Time 15:10 Visit Stop Time 16:03 Physical Therapy Visit Comments Patient Comments Pt reports he's going home, does NOT want to stay at the hospital. However, pt unable to explain how he's going to physically leave the hospital. Patient Goals Go home Therapy Pain Assessment Pain When Pain Assessed During Mobility Pain Present Pain Present Pain Reported Location Left Hip Pain Behaviors Calling Out Facial Grimacing Holding Area Wincing Pain Management Techniques Modification of Treatment Re-positioning M4 PT-IP Mobility and Gait Start: 10/26/18 16:01 Freq: NEEDED Status: Active Protocol: Document 10/26/18 16:03 RS (Rec: 10/26/18 16:15 RS [id number]) PT-Bed Mobility Assessment Rolling Type of Rolling Roll to Right Level of Assist Maximal Assistance PT-Transfer Assessment Comments Mobility Comments Pt able to perform R rolling only. Attempted supine>sit several times and pt unable to tolerate any technique due to LLE pain, refused to continue . Gait Assessment Comments Gait Comments not appropriate to assess Stair Climbing Assessment Comments Stair Climbing Comments not appropriate to assess PT-Balance Assessment Comments Other Balance Tests/Deviations/Treatment unable to test unsupported : sitting or standing balance. Supported in bed with HOB completely elevated, pt able to maintain midline. M5 PT-IP Objective Assessments Start: 10/26/18 16:01 Freq: NEEDED Status: Active Protocol: Document 10/26/18 16:03 RS (Rec: 10/26/18 16:15 RS [id number]) Orientation Orientation/Cognition Level of Alertness Confusional State Safety Awareness Decreased Safety Awareness Gross Range of Motion Lower Extremity ROM Assessment Left Impaired Impairments d/t pain, even passive motion Strength Lower Extremity Strength Assessment Left Impaired Comments Strength Comments not formally assessed due to pain RLE demonstrates at least anti -gravity M6 PT-IP Treatment Start: 10/26/18 16:01 Freq: NEEDED Status: Active Protocol: Document 10/26/18 16:03 RS (Rec: 10/26/18 16:15 RS [id number]) Physical Therapy Treatment Education Education Provided Safety M7 PT-IP Assessment and Plan Start: 10/26/18 16:01 Freq: NEEDED Status: Active Protocol: Document 10/26/18 16:03 RS (Rec: 10/26/18 16:15 RS [id number]) PT Summary Assessment and Plan Potential Rehabilitation Potential Fair Status of Condition at Evaluation Stable Summary Impairments Pain Cognition Bed Mobility Transfers Gait Activity Tolerance Assessment Summary Pt presents with significant LLE pain that makes it impossible for pt to mobilize out of bed. Due to the acute nature of current injury/pain, will attempt reassessment in the morning. Currently, pt requires 2-person max A for bed mobility/repositioning. Pt was unable/unwilling to perform any other mobility tasks. If patient were to discharge at current level he would need a mechanical lift for all OOB transfers, otherwise pt would be completely bed bound. Also recommend 24/7 assist. Anticipate pt's pain tolerance will at least be slightly better tomorrow with the hope of pt being able to more fully participate in mobility assessment and make new d/c recommendations. Goals Bed Mobility Goal Minimal Assistance Transfer Goal Minimal Assistance Front Wheeled Walker Days to Meet Goals 3 Frequency of Treatment Frequency Of Treatment Twice a Day Treatment Plan Physical Therapy Treatment Plan Bed Mobility Training Transfer Training Gait Training Therapeutic Exercise Balance Retraining Post Op Education Discharge Planning Hot or Cold Pack Neuromuscular Re-ed Coordination Retraining Manual Therapy Other Recommendations and Next Treatment check with RN in morning to Focus see if pt's family wants to be present for session and at what time. work on bed mobility and transfers as focus. maybe use mech lift to chair and try standing/ transferring from there? Recommendations To Nursing Amount of Assist Needed Mechanical Lift Discharge Recommendations PT Discharge Recommendations Home with 24/7 Assist
--- NOTE | 2018-10-26 16:39 | P.CONS_ITS ---
History of Present Illness Date Patient Seen: 10/26/18 Time Patient Seen: 16:33 Chief complaint: GLF Left Hip Pain Reason for consult: Left hip pain possible fracture Requesting provider: Stefania Johns Narrative: Jacob Rosenbaum is a an 83-year-old man lyse asked to see for evaluation of possible left hip fracture. The patient is a resident of [facility]. He was reaching for a book last evening when he fell. He had severe pain in the left hip which prevented him from ambulating. He was evaluated in the emergency room. X-rays were taken which were questionable for a femoral neck fracture. He was admitted for workup of a possible fracture as he was unable to ambulate well enough to return back to his previous living situation. I spoke with the patient and his son. He reports that he has had moderate pain in the left hip but has been doing fairly well. He ambulates in his room but does have a motorized scooter. He had a previous right total hip arthroplasty. [facility] Medical History CHF (congestive heart failure) (Suspected) Urinary incontinence (Chronic) BPH (benign prostatic hyperplasia) (Chronic) Fracture of femoral neck, left, closed (Acute) Hyperlipidemia (Chronic) Hypertension (Acute) Surgical History History of right hip replacement (Chronic) History of coronary artery stent placement (Chronic) Hx of CABG (Chronic) Family History (Updated 10/25/18 @ 23:34 by DARIA Arias) Mother Polio Father No problems noted. Social History household members: other housing: assisted living facility Smoking Status: Former smoker alcohol intake: former Family History Mother Polio Father No problems noted. Social History household members: other housing: assisted living facility Smoking Status: Former smoker alcohol intake: former Meds Home Medications Medication Instructions Recorded Confirmed Type amlodipine 10 mg PO DAILY 10/25/18 10/25/18 History aspirin [Adult Low Dose Aspirin] 81 mg PO DAILY 10/25/18 10/25/18 History cholecalciferol (vitamin D3) 1,000 unit PO DAILY 10/25/18 10/25/18 History [Vitamin D3] finasteride 5 mg PO DAILY 10/25/18 10/25/18 History furosemide 20 mg PO QAM 10/25/18 10/25/18 History losartan 100 mg PO DAILY 10/25/18 10/25/18 History metoprolol succinate 100 mg PO DAILY 10/25/18 10/25/18 History tamsulosin 0.4 mg PO DAILY 10/25/18 10/25/18 History Allergies Allergy/AdvReac Type Severity Reaction Status Date / Time Hydrochlorothiazide Allergy Unknown Uncoded 07/09/17 12:07 Lisinopril Allergy Unknown Uncoded 07/09/17 12:07 Rosuvastatin Allergy Unknown Uncoded 07/09/17 12:07 Review of Systems Review of Systems Patient does have a previous history of left hip pain. See medical admission for detailed review of systems. Exam Vital Signs (past 8 hours): - 10/26/18 12:00 Temperature 97.7 F Pulse Rate 73 Respiratory Rate 17 Blood Pressure 151/83 H Pulse Oximetry 96 Oxygen Delivery Method Room Air Oxygen Flow Rate 0 Extrem Other: The patient is resting comfortably in bed. He does report some pain in the left hip but is generally comfortable when lying down. Left hip range of motion is significantly diminished and painful. The pain is felt in the groin area radiating into the proximal femur. He has significant edema of both lower extremities. He does have grossly palpable lower extremity pulses. The leg is warm and pills adequately confused. Motor strength is grossly intact throughout the lower extremity. Sensation is also intact. No skin lesions are noted in the lower extremity. Objective Labs Result Diagrams: 10/25/18 21:50 10/26/18 04:57 Labs: Laboratory Results - last 24 hr 10/25/18 10/25/18 10/25/18 21:50 21:50 21:50 WBC 10.0 RBC 4.97 Hgb 15.4 Hct 45.3 MCV 91.1 MCH 31.1 MCHC 34.1 RDW 14.6 Plt Count 263 Neut % (Auto) 81.6 H Lymph % (Auto) 10.2 L Bailey % (Auto) 6.7 Eos % (Auto) 1.1 L Baso % (Auto) 0.4 Neut # (Auto) 8100 H Lymph # (Auto) 1000 L Bailey # (Auto) 700 Eos # (Auto) 100 Baso # (Auto) 0 Sodium 141 Potassium 3.2 L Chloride 105 Carbon Dioxide 29 BUN 17 Creatinine 0.90 Estimated GFR > 60.0 BUN/Creatinine Ratio 18.9 Glucose 113 H Calcium 9.9 Magnesium Total Bilirubin 0.7 AST 18 ALT 24 Alkaline Phosphatase 105 B-Natriuretic Peptide Total Protein 7.4 Albumin 4.1 Globulin 3.3 Albumin/Globulin Ratio 1.2 Lipase 93 Urine Color Urine Appearance Urine pH Ur Specific [place] Urine Protein Urine Glucose (UA) Urine Ketones Urine Occult Blood Urine Nitrate Urine Bilirubin Urine Urobilinogen Ur Leukocyte Esterase Urine RBC Urine WBC Ur Squamous Epith Cells Urine Bacteria Ur Culture Indicated? Blood Type A Positive Antibody Screen Negative 10/25/18 10/26/18 10/26/18 23:26 04:57 13:00 WBC RBC Hgb Hct MCV MCH MCHC RDW Plt Count Neut % (Auto) Lymph % (Auto) Bailey % (Auto) Eos % (Auto) Baso % (Auto) Neut # (Auto) Lymph # (Auto) Bailey # (Auto) Eos # (Auto) Baso # (Auto) Sodium 143 Potassium 3.4 Chloride 106 Carbon Dioxide 29 BUN 14 Creatinine 0.70 Estimated GFR > 60.0 BUN/Creatinine Ratio 20.0 Glucose 104 Calcium 9.4 Magnesium 2.2 Total Bilirubin 0.7 AST 17 ALT 27 Alkaline Phosphatase 89 B-Natriuretic Peptide 425 H Total Protein 6.8 Albumin 3.8 Globulin 3.0 Albumin/Globulin Ratio 1.3 Lipase Urine Color Yellow Urine Appearance Clear Urine pH 7.0 Ur Specific [place] 1.010 Urine Protein Negative Urine Glucose (UA) Negative Urine Ketones Trace H Urine Occult Blood 1+ H Urine Nitrate Negative Urine Bilirubin Negative Urine Urobilinogen 1.0 Ur Leukocyte Esterase 2+ H Urine RBC 1-5/hpf Urine WBC 5-10/hpf H Ur Squamous Epith Cells 0-1 /hpf Urine Bacteria None seen Ur Culture Indicated? Specimen cultured Blood Type Antibody Screen Assessment & Plan Assessment & Plan narrative: Exacerbation of pre-existing left hip osteoarthritis. The patient's x-rays were evaluated and appeared to be more consistent with severe osteoarthritis with deformity of the humeral head than an actual fracture. A CT scan was obtained which did rule out fracture. I had a long discussion with the patient and his family. I would expect significant improvement with simple rest and medical management. If the symptoms did persist then he may need to consider a total hip arthroplasty. However, the patient is not a good surgical candidate given his cardiac history, current ambulatory status as well as the newly discovered iliac aneurysm. Patient may be progressed as tolerated and discharged when safe. Time Spent With Patient Time with patient: less than 15 minutes
[2018-10-26] MEDS: TRAMADOL 50 MG TABLET PO (16:40)
--- NOTE | 2018-10-26 16:41 | OT.IP.EVAL ---
Current Diagnoses Hyperlipidemia, unspecified (10/25/18) Localized edema (10/25/18) Past Medical History (Last Reviewed 10/26/18 @ 16:35 by Kalen Booth MD) CHF (congestive heart failure) (Suspected) Urinary incontinence (Chronic) BPH (benign prostatic hyperplasia) (Chronic) Fracture of femoral neck, left, closed (Acute) Hyperlipidemia (Chronic) Hypertension (Acute) Surgical History (Last Reviewed 10/26/18 @ 16:35 by Kalen Booth MD) History of right hip replacement (Chronic) History of coronary artery stent placement (Chronic) Hx of CABG (Chronic) Occupational Therapy Inpatient Evaluation/Re-Eval M1 PT/OT-IP Prior Functional Status Start: 10/26/18 16:01 Freq: NEEDED Status: Active Protocol: Document 10/26/18 16:26 CGR (Rec: 10/26/18 16:41 CGR [id number]) Medical Review Prior Functional Status Medical History Reviewed Yes Mobility and Gait mod ind with transfers in/out of bed to/from [facility], didn't really do much walking Activities of Daily Living and IADL's reports being able to take his own shower, get dressed, and toilet without assist. Took meals in the dining segura, did not cook for himself. Prior Functional Level (Other details) has had multiple falls Social History Household Members other Living Arrangements Assisted Living Home Environment Walk in Shower Home Equipment Front Wheel Walker Four Wheel Walker Straight Cane Manual Wheelchair Power Wheelchair/Scooter Employment Status Retired Additional Social History Comment Lives at [facility] with the lowest level of care needed, has had MULTIPLE falls M2 OT-IP Current Condition Start: 10/26/18 16:26 Freq: Status: Active Protocol: Document 10/26/18 16:26 CGR (Rec: 10/26/18 16:41 CGR [id number]) Occupational Therapy Current Condition Current Condition Evaluation Date 10/26/18 Treatment Diagnosis Fall with L hip pain Diagnosis Onset Date 10/25/18 M3 OT- IP Subjective and Pain Start: 10/26/18 16:26 Freq: Status: Active Protocol: Document 10/26/18 16:26 CGR (Rec: 10/26/18 16:41 CGR [id number]) OT- Subjective Occupational Therapy Visit Type Type Initial Evaluation Visit Start Time 15:10 Visit Stop Time 16:03 Total Visit Minutes 53 Notes Co-treat with P.T. Occupational Therapy Visit Comments Patient Comments I am not staying here tonight. OT Pain Assessment Pain When Pain Assessed During Mobility Pain Present Pain Present Pain Reported Location Left Hip Scale Used Pt unable to state but unable to move d/t pain. M4 OT- IP ADL's Start: 10/26/18 16:26 Freq: Status: Active Protocol: Document 10/26/18 16:26 CGR (Rec: 10/26/18 16:41 CGR [id number]) OT ADL-Grooming Comments OT Grooming Comments Pt declined OT ADL-Oral Care Comments Oral Care Comments Pt declined OT ADL-Dressing General Eval Lower Body Dressing Ability Total Assistance Areas Needing Assistance Socks Comments OT Dressing Comments For donning socks prior to attempting transfer. OT ADL-Toileting Comments OT Toileting Comments Pt with griffith OT ADL-Bathing Comments OT Bathing Comments Not appropriate at this time. M5 OT- IP IADL's Start: 10/26/18 16:26 Freq: Status: Active Protocol: Document 10/26/18 16:26 CGR (Rec: 10/26/18 16:41 CGR [email or web address]) OT-Instrumental Activities of Daily Living Deficits IADL Deficits Identified Deficits Home Safety Awareness Awareness of Need for Assistance at Home Decreased Awareness Ability to Problem Solve Emergency Unable to Problem Solve Situations Home Safety Comments Pt is unable to rationalize his inability to mobilize as rational for not being discharge from the hospital. Medication Management Medication Management Caregiver Administers Money Management Money Management Caregiver Provides Assistance Meal Preparation Meal Preparation Caregiver Provides Assist Meal Preparation Comments Pt eats in the dining segura Floral Merchandiser Floral Merchandiser Caregiver Provides Assist Driving Driving Comments Pt does not drive. M6 OT- IP Functional Cognition Start: 10/26/18 16:26 Freq: Status: Active Protocol: Document 10/26/18 16:26 CGR (Rec: 10/26/18 16:41 CGR [id number]) Cognitive Factors Limiting Selfcare Function Cognitive Ability Level of Alertness Alert Confusional State Patient Orientation Name Age Birthday Month Date Year Situation Attention Span Ability Capable of Focused Attention Ability to Follow Commands Able to Follow One Step Commands with Increased Time Able to Follow One Step Commands with Repetition Memory Description Immediate Impaired Short Term Impaired Safety Awareness Underestimates Need for Assistance Problem Solving Ability Unable to Identify Errors Needs Assist to Identify Solutions Cognitive Comments Cognitive Assessment Comments Pt may benefit from formal cog assessment. OT- Vision and Hearing OT- Hearing Assessment OT- Hearing Assessment WFL OT- Vision Assessment Visual Acuity WFL Visual Attentiveness WFL Occular Pursuits WFL Visual Convergence WFL Visual Almazan WFL M7 OT- IP Mobility and Balance Start: 10/26/18 16:26 Freq: Status: Active Protocol: Document 10/26/18 16:26 CGR (Rec: 10/26/18 16:41 CGR [email or web address]) OT- Bed Mobility Assessment Rolling Level of Assistance Maximum Assistance Scooting Scooting Up and Down in Bed Total Assistance 2 Person Assistance M8 OT- IP Objective Assessments Start: 10/26/18 16:26 Freq: Status: Active Protocol: Document 10/26/18 16:26 CGR (Rec: 10/26/18 16:41 CGR [id number]) OT Strength Comments Strength Comments Grossly 4/5 as seen with arm use for attempted transfer M9 OT- IP Assessment and Plan Start: 10/26/18 16:26 Freq: Status: Active Protocol: Document 10/26/18 16:26 CGR (Rec: 10/26/18 16:41 CGR [email or web address]) OT Summary Assessment and Plan Potential Rehabilitation Potential Good Analytic Complexity at Evaluation Moderate Summary OT Impairments Pain Strength Balance Functional Cognition Functional Mobility Dressing Toileting Bathing Toilet Transfers Shower Transfers Progress Towards Goals Slow Progress due to Pain Slow Progress due to Cognition Assessment Summary Pt admitted s/p fall with significant pain to the L hip. Attemtped supine to sit with HOB flat and up for increased comfort and to both sides of the bed and pt declined to continue d/t pain. Pt needs extra time for all activity and is confused. Pt with poor rationalization of situation and unable to problem solve basic safety at this time. Family present expressed concern for pt staying in bed. Explained current pain and ability of pt does not allow out of bed activity at this time. Therapy to attempt mobilization again tomorrow. Pt will likley be most appropriate for SNF or 24 hour care. Goals Grooming Goal Independent Dressing Goal Independent Toileting Goal Independent Bathing Goal Independent Toilet Transfer Goal Independent Shower Transfer Goal Independent Days to Meet Goals 5 Frequency of Treatment Frequency Of Treatment Once a Day Treatment Plan OT Treatment Plan ADL Training Functional Cognition Training Functional Mobility Patient/Family Education Discharge Planning Other Treatment Recommendations and Next Needs further evaluation. Treatment Focus Discharge Recommendations OT Discharge Recommendations Home with 24/7 Assist SNF Rehab Other Discharge Recommendations SNF vs 24 hour assist given current mobility.
[2018-10-26] MEDS: ACETAMINOPHEN 325 MG TABLET 975 MG PO (21:15)
[2018-10-26] MEDS: LOSARTAN 50 MG TABLET PO (21:17)
[2018-10-27 00:20] VITALS: O2SAT 97
[2018-10-27] MEDS: ONDANSETRON 4 MG/2 ML INJ IV (01:28)
[2018-10-27] MEDS: POTASSIUM CHLORIDE 40 MEQ in SODIUM CHLORIDE 0.9% 500 ML 130 ML IV (01:50)
--- NOTE | 2018-10-27 02:11 | PC.NURSE ---
Vomited x 3, 4 mg. of Zofran admin. Pt. very restless & very dis-oriented trying to get OOB. Denies any CP, but C/O lt. hip pain. States my hip pain is not that bad. Will cont. POC & monitor.
--- NOTE | 2018-10-27 02:18 | PC.NURSE ---
AUTOMOTIVE SERVICE MANAGER. called that there's some changes in his tele rhythm, HR. sustaining in 120's to 130's . Recommended to do an ECG, hospitalist DARIA Johns notified. RT notified with new order of ECG, AUTOMOTIVE SERVICE MANAGER.also reported some ST elevation/depression.
[2018-10-27 02:45] VITALS: BP 164/89; PULSE 107; O2SAT 91
--- NOTE | 2018-10-27 02:55 | P.EN_ITS ---
Date Patient Seen: 10/27/18 Time Patient Seen: 02:30 Patient reported by Diamond in ICU to be tachycardic and in atrial fibrillation. I ordered an ECG and a stat troponin and magnesium. Patient was arousable, told me my screw machine hand came by today and told me I was 40% and in good shape. He denies chest pain or shortness of breath. He is tachycardic and irregular. He was oxygenating at 91% on room air. I have requested he be placed on 2L O2 NC and administered IV lopressor 5 mg. He had received his regular daytime and evening blood pressure medications. Troponin was elevated at 0.10 and magnesium was normal at 1.8. ECG did not indicate any significant change from the one prior done on 10/25. Reviewed w/ED physician and on-call screw machine hand. Will trend troponins and have ordered a formal cardiology consult to determine if they wish to stress test later today. Will hold first dose of bb in case stress test is ordered today. He is initiated on therapeutic Lovenox today. After the lopressor administration, blood pressure went down to 145/87, HR to 75 and was oxgenating at 96% on 2L.
[2018-10-27] MEDS: METOPROLOL TARTRATE 5 MG/5 ML INJ IV (03:06)
[2018-10-27 03:09] LABS: Magnesium 1.8 mg/dL (1.6-2.3)
[2018-10-27 03:40] VITALS: BP 145/87; PULSE 75; RESP 18; TEMP 36.3; O2SAT 96
[2018-10-27] MEDS: SODIUM CHLORIDE 0.9% FLUSH 10 ML IV ×2 (06:02→09:15)
[2018-10-27 06:24] LABS: Blood Urea Nitrogen 12 mg/dL (9-20); Calcium 9.1 mg/dL (8.4-10.2); Carbon Dioxide 27 mmol/L (22-32); Chloride 104 mmol/L (98-107); Estimated Glomerular Filt Rate > 60.0 mL/min (>60); Glucose 141 mg/dL (80-110); HEMOLYSIS < 15 (0-50); Potassium 3.9 mmol/L (3.4-5.1); Sodium 138 mmol/L (137-145)
[2018-10-27 07:00] VITALS: BP 175/95; PULSE 70; RESP 20; TEMP 36.7; O2SAT 97
--- NOTE | 2018-10-27 08:39 | PM.PN.1 ---
Subjective Date Patient Seen: 10/27/18 Time Patient Seen: 08:40 Interval history: Hospital day 3 after ground level fall and a left hip injury. He was initially thought patient had a left hip fracture but after CT scan no fracture was seen. He does have severe osteoarthritis of his left hip. Dr. Booth was consulted for Orthopedics and no surgery indicated. He is to be weight-bearing as tolerated. Has been using tramadol and Tylenol for pain. He does have a Brush catheter in place. The nurse reports that he did have Sundowners yesterday evening. Exam Vital Signs (past 8 hours): - 10/27/18 02:45 10/27/18 03:40 Temperature 97.4 F L Pulse Rate 107 H 75 Respiratory Rate 18 Blood Pressure 164/89 H 145/87 H Pulse Oximetry 91 96 Oxygen Delivery Method Room Air Oxygen Flow Rate 2 Narrative Exam Narrative: Patient was sleeping but was arousable and responsive in no acute distress. He states that his left hip pain is improved. Left leg. No calf pain or swelling. Pulses symmetrical. Objective Labs Result Diagrams: 10/25/18 21:50 10/27/18 06:00 Labs: Laboratory Results - last 24 hr 10/26/18 10/27/18 10/27/18 13:00 02:36 02:36 Sodium Potassium Chloride Carbon Dioxide BUN Creatinine Estimated GFR BUN/Creatinine Ratio Glucose Calcium Magnesium 1.8 Troponin I 0.100 H Urine Color Yellow Urine Appearance Clear Urine pH 7.0 Ur Specific [place] 1.010 Urine Protein Negative Urine Glucose (UA) Negative Urine Ketones Trace H Urine Occult Blood 1+ H Urine Nitrate Negative Urine Bilirubin Negative Urine Urobilinogen 1.0 Ur Leukocyte Esterase 2+ H Urine RBC 1-5/hpf Urine WBC 5-10/hpf H Ur Squamous Epith Cells 0-1 /hpf Urine Bacteria None seen Ur Culture Indicated? Specimen cultured 10/27/18 06:00 Sodium 138 Potassium 3.9 Chloride 104 Carbon Dioxide 27 BUN 12 Creatinine 0.60 L Estimated GFR > 60.0 BUN/Creatinine Ratio 20.0 Glucose 141 H Calcium 9.1 Magnesium Troponin I Urine Color Urine Appearance Urine pH Ur Specific [place] Urine Protein Urine Glucose (UA) Urine Ketones Urine Occult Blood Urine Nitrate Urine Bilirubin Urine Urobilinogen Ur Leukocyte Esterase Urine RBC Urine WBC Ur Squamous Epith Cells Urine Bacteria Ur Culture Indicated? Assessment & Plan Assessment & Plan narrative: Plan: Patient has left hip contusion with severe osteoarthritis. Gradually increase ambulation activity as tolerated. Discharge pending clearance by hospitalist. Orthopedics will sign off at this time since there is no surgical intervention needed. Quality VTE Deep Vein Thrombosis/Pulmonary Embolism Present on Admission: No
[2018-10-27 08:41] VITALS: O2SAT 97
--- NOTE | 2018-10-27 08:41 | CM.DPC ---
DCP Cont: Asking Kalen in UR to re-review case for possible inpatient. At this time, he is still OBS. Went ahead and left [facility] at [facility] a message regarding patient, and potentially paying privately. Faxed over face sheet, H&P, and latest prog notes. P: DCP to continue to follow. Patient has already been seen by orthopedic, and is not a candidate for surgery. Will follow up with UR, as well as [facility] today. Family should be in later today. Bertha Browne RN/Storyboard Artist
--- NOTE | 2018-10-27 08:50 | PC.NURSE ---
Day shift: Dr Burrows made aware that Pt is incontinent and per Dr Burrows no UA needed at this time.
[2018-10-27] MEDS: ACETAMINOPHEN 325 MG TABLET 975 MG PO ×2 (09:12→14:28)
[2018-10-27] MEDS: AMLODIPINE 5 MG TABLET 10 MG PO (09:13)
[2018-10-27] MEDS: ASPIRIN EC 81 MG TABLET PO (09:13)
[2018-10-27] MEDS: LOSARTAN 50 MG TABLET PO (09:14)
[2018-10-27] MEDS: ENOXAPARIN 100 MG/ML SYRINGE 85 MG SUBCUT (09:14)
--- NOTE | 2018-10-27 09:50 | PC.NURSE ---
Day shift: Talked with MARCY Cheng about Pt removing his blood band. Khanh Cheng said that it was not needed now because Pt will not be having surgery.
--- NOTE | 2018-10-27 10:35 | PT.IPTN ---
Current Diagnoses Hyperlipidemia, unspecified (10/25/18) Localized edema (10/25/18) Physical Therapy Treatment Note M2 PT-IP Current Condition Start: 10/26/18 16:01 Freq: NEEDED Status: Active Protocol: Document 10/26/18 16:03 RS (Rec: 10/26/18 16:15 RS [id number]) Physical Therapy Current Condition Current Condition Evaluation Date 10/26/18 Treatment Diagnosis L hip/leg pain, debility Onset Date 10/25/18 Weight Bearing Status Weight Bearing Status Weight Bear as Tolerated M3 PT-IP Subjective Start: 10/26/18 16:01 Freq: NEEDED Status: Active Protocol: Document 10/27/18 10:35 AB (Rec: 10/27/18 13:21 AB [id number]) Subjective Physical Therapy Visit Type Type Treatment Note Visit Start Time 10:35 Visit Stop Time 11:00 Total Visit Minutes 25 Number of SURGICAL SPECIALIST Visits 0 Physical Therapy Visit Comments Patient Comments pt agreed to get up. pt's daughter in room with pt. Therapy Pain Assessment Pain When Pain Assessed During Mobility Pain Present Pain Present Pain Reported Location Left Hip Scale Used pain sclae unable to state Pain Behaviors Holding Area Pain Management Techniques Timing of Activity with Medications M4 PT-IP Mobility and Gait Start: 10/26/18 16:01 Freq: NEEDED Status: Active Protocol: Document 10/27/18 10:35 AB (Rec: 10/27/18 13:21 AB [id number]) PT-Bed Mobility Assessment Supine to Sit Supine to Sit Maximum Assistance 1 Person Assistance 2 Person Assistance Bedrails PT-Transfer Assessment Sit to and From Stand Sit to and from Stand Moderate Assistance Maximum Assistance 2 Person Assistance Use of Upper Extremities Equipment Transfer Assistive Device Gait Belt Front Wheeled Walker Orthotic/Prosthetic Devices or Brace: No Transfers Transfer Destination Chair Transfer Technique Stand Step Pivot Transfer Ability Level of Assist Maximum Assistance Use of Upper Extremities Comments Mobility Comments pt completed sit to stand with mod to max A x 2 and max cues . pt with difficulty with L knee flexion and positionining prior to sit to stand due to c/o pain. once up, pt was able to complete stand pivot transfer using FWW max A and max cues. pt required max A x 1-2 for controlled descent to the chair. Gait Assessment Gait Gait Assistance Required: Moderate Assistance Maximum Assistance 1 Person Assist Distance (Feet) 25 Able to Maintain Weight Bearing Status Yes During Gait Assistive Devices Assistive Device Gait Belt Front Wheeled Walker Orthotic/Prosthetic Devices or Brace: No Gait Deviations General Gait Pattern Antalgic Decreased Stride Length Flexed Trunk Step-to Gait Factors Limiting Gait Function Factors Limiting Gait Function Decreased Activity Tolerance Decreased Strength Difficulty Following Directions Limited Range of Motion Pain Poor Balance Poor Safety Awareness Comments Gait Comments pt ambulated in room ~ 25 ft using FWW mod to max A and max cues and chair follow for safety. pt. with unsteady gait, increase L knee flexion and with (+) genu varum. positioned pt on the chair after ambulation. Left pt with OT and pt's daughter. M5 PT-IP Objective Assessments Start: 10/26/18 16:01 Freq: NEEDED Status: Active Protocol: Document 10/26/18 16:03 RS (Rec: 10/26/18 16:15 RS [id number]) Orientation Orientation/Cognition Level of Alertness Confusional State Safety Awareness Decreased Safety Awareness Gross Range of Motion Lower Extremity ROM Assessment Left Impaired Impairments d/t pain, even passive motion Strength Lower Extremity Strength Assessment Left Impaired Comments Strength Comments not formally assessed due to pain RLE demonstrates at least anti -gravity M6 PT-IP Treatment Start: 10/26/18 16:01 Freq: NEEDED Status: Active Protocol: Document 10/27/18 10:35 AB (Rec: 10/27/18 13:21 AB [id number]) Physical Therapy Treatment Education Education Provided Safety M7 PT-IP Assessment and Plan Start: 10/26/18 16:01 Freq: NEEDED Status: Active Protocol: Document 10/27/18 10:35 AB (Rec: 10/27/18 13:21 AB [id number]) PT Summary Assessment and Plan Potential Rehabilitation Potential Fair Summary Impairments Pain ROM Strength Balance Coordination Sensation Tone Cognition Bed Mobility Transfers Gait Activity Tolerance Progress Towards Goals Slow Progress due to Pain Slow Progress - Other Assessment Summary pt requiring mod to max A x1-2 for mobility and max cues. has difficulty with moving LLE and with c/o pain and guarding. pt will benefit from SNF rehab to improve strength and mobility. pt's daughter stated that pt has been using a SPC and sometimes 2 SPC for mobility inside his room but uses a power w/c for outdoor mobility. per daughter, pt has a FWW but does not use it. at this time, recommending use of FWW. family wants pt to go home and if pt goes back to [facility] will need 24/7 care and use of FWW. will also need homehealth services. Goals Bed Mobility Goal Minimal Assistance Transfer Goal Minimal Assistance Front Wheeled Walker Gait Goal Standby Assistance Gait Distance 50 Days to Meet Goals 3 Frequency of Treatment Frequency Of Treatment Twice a Day Treatment Plan Physical Therapy Treatment Plan Bed Mobility Training Transfer Training Gait Training Therapeutic Exercise Balance Retraining Discharge Planning Hot or Cold Pack Neuromuscular Re-ed Coordination Retraining Manual Therapy Recommendations To Nursing Amount of Assist Needed 2 Person Assist Discharge Recommendations PT Discharge Recommendations Home with 24/7 Assist Home Health SNF Rehab
[2018-10-27 11:00] VITALS: BP 159/79; PULSE 67; RESP 18; TEMP 36.8; O2SAT 96
--- NOTE | 2018-10-27 11:25 | CM.DPC ---
Addendum entered by Bertha Browne R.N. 10/27/18 12:17: Met with family in room. Patient is up in chair, he was able to ambulate with two person assist pivot transfer with walker. Family is wanting him to go to [place] today. Spoke to Lena at [facility] who stated that they can accept patient, but are concerned about his falls. She is requesting that patient get home health/palliative care through [facility] as an urgent referral. Updated Dr. Burrows and asked her to put this in her discharge summary. Face to face signed. Harleen at [facility] stated that palliative/home health are in the same building with hospice, and would give them paperwork that was faxed. Doreen, nurse, just stated that Troponin level has climbed, and needs to let Dr. Burrows know. Stated that he may not go today based on information, but will see what she says. Billie in [facility] stated that patient may be able to get into van as opposed to BLS transport. Original Note: DCP Cont: Went ahead and left Aida in admissions at [facility] regarding referral, and potential for him coming in private pay. Faxed over information, including face sheet, history and physical, and latest prog notes. She then called back, and asked for more information. She wanted advanced directives, POLST, and P.T. notes. Went ahead and faxed to her. Discussed daily rate. Stated if semi-private room, would be $300.00 a day, but going up after the 1st to 350.00. Stated that for a private room, would start out at $330.00 a day, and after that, $400.00. Patient will be re-reviewed today as far as UR status. Aida stated, they may be able to take him today, but unsure, her director will look it over. Updated daughter, Deanna, who is on her way here. Spoke to Lena at [facility]. Let her know situation. She stated, they may be able to accept patient back if he is bedbound, but would need a hospital bed. She stated that she would need to discuss this with her registered medical assistant. Spoke to Harleen at [facility]. Stated that her registered medical assistant, Dr. Gallegos, was reviewing, and not sure if he would qualify for hospice, even after looking at his echo. Stated that they could still do an informational visit. P: Family is here now. Will discuss options. Will follow up with UR today as well regarding inpatient status. Bertha Browne RN/Language And Literature Division Chair
--- NOTE | 2018-10-27 11:44 | PC.NURSE ---
Day shift: Talked to Dr Burrows about the orthstatic BP's order and she will look into wanting that to be done or to d/c it. Call light in reach and chair alarm is on.
--- NOTE | 2018-10-27 12:31 | PC.NURSE ---
Day sift: Dr Burrows wanted BP's taken laying down (135/74. HR 67) and siting (115/67. HR 79). These reported to Dr Burrows.
--- NOTE | 2018-10-27 13:46 | P.DS_ITS ---
History of Present Illness Date Patient Seen: 10/27/18 Chief complaint: GLF Left Hip Pain Narrative: lukas Rosenbaum is an 83-year-old male resident at [facility] in [place] who was in his usual state of health and was reaching for a book on the book shelf when he bent over and fell on his right shoulder and left hip. He is a bit of a difficult historian as he does not appear to be oriented to time. Apparently this occurred yesterday and was not brought in until today. The daughter and son-in-law are in the room and state that when he called them to let them know that he had fallen, they thought he was going to go to [facility] and quickly found out that he had actually directed the ambulance to take him to [facility]. He does endorse pain on his left hip but denies any pain in either of her shoulders. He did state that he has chronic pain in his left shoulder he states due to having 8 cardiac stents placed approximately 2 years ago at [facility] in [place]. 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 He currently does not see a fbi sharpshooter. He has a PCP, Dr. Goldberg in [place] and has been being worked up for lower extremity swelling. He had labs drawn at Dr. Goldberg' office and a chest x-ray done at [facility] on Friday of this week and was due to have a follow-up appointment with him next Friday. He states he has been very dizzy and when he gets up from a sitting or lying position he gets very lightheaded and has had frequent falls as a result of this. He denies shortness of breath, palpitations, chest pain, nausea or vomiting, abdominal pain, diarrhea, peripheral neuropathy. He does endorse having urinary frequency and incontinence but was unable to tell me how long this has been going on. He also states he has had foot swelling that started shortly after being admitted [facility] and it is presumed that their diet may be contributing to his increased swelling. He did have some episodes of low blood pressure however this seems to have subsided. Discharge Providers Date of admission: 10/25/18 22:20 Discharge Date: 10/27/18 Consults: 10/25/18 22:17 Consult to Physician Stat Comment: Consulting Provider: Kalen Booth Reason for consultation: Left fem neck fx Has provider been notified: Yes 10/26/18 15:20 Consult to Physical Therapy Evaluate & Treat Comment: Physician Instructions: Evaluate and Treat 10/26/18 15:21 Consult to Occupational Therapy Evaluate & Treat Comment: Physician Instructions: Evaluate and treat 10/27/18 03:58 Consult to Physician Routine Comment: Consulting Provider: Andra Caal Reason for consultation: New afib w/RVR, new dx illiac artery aneurysm. Has provider been notified: Yes 10/27/18 12:03 Consult to Home Health Routine Comment: Palliative Care/Home Health, urgent referral Reason For Exam: Nursing, P.T, O.T, bath aide Discharge provider: Kelly Burrows MD Summary Discharge Diagnosis: 1. DJD of the left femoral neck 2. Status post ground level fall 3. Type 2 myocardial infarction 4. Hypokalemia 5. Chronic atrial fibrillation 6. Congestive heart failure, chronic, with preserved ejection fraction EF of 55- 60% 7. Coronary artery disease status post coronary bypass graft x2 8. Hypertension 9. BPH 10. Dementia Hospital Course: Patient is an 83-year-old male admitted to the hospital following a ground level fall. Initially there was concern regarding a left femoral neck fracture. On further review the patient was found to have severe DJD. Patient has multiple medical problems including chronic atrial fibrillation, hypertension, coronary disease, and vascular dementia. The patient was felt to not require urgent surgical repair of his hip. In addition given his underlying significant coronary disease and baseline dementia it was felt that further cardiac clearance would be indicated prior to pursuing surgery. The patient was able to ambulate with assistance today. He does not appear to be in pain. His blood pressure was checked and lying was 135/74 with heart rate of 67 sitting 115/67 with a heart rate of 79. The patient developed rapid atrial fibrillation last evening. He required IV Lopressor. Cardiac enzymes were obtained. His initial enzymes were 0.11. Repeat enzyme was elevated at 0.177. Patient is confused and unable to provide reliable history. I discussed his care with his durable power manager activities. They are anxious for him to get back to [facility]. They do understand that the patient may have had an elevated cardiac enzyme but do not want to pursue any further cardiac workup. He will be referred there with home health/palliative care and an informational visit with hospice. The patient is being made DNR at the request of the family. They would prefer a comfort measures mostly in for him to return to the assisted living facility as soon as possible. The patient is sitting in the kitchen chair without difficulty. Arrangements are being made for him to transfer today for ongoing care. The patient had a cardiac echo which showed an ejection fraction of 55-60%. There was no significant wall motion abnormalities. Status at Discharge Cognitive/behavioral status at discharge: at baseline, confused Functional status at discharge: uses cane/walker Overall status at discharge: patient is not back to baseline Time Spent with Patient Less than 30 minutes Exam Vital Signs (past 8 hours): - 10/27/18 07:00 10/27/18 08:41 10/27/18 11:00 Temperature 98.1 F 98.3 F Pulse Rate 70 67 Respiratory Rate 20 18 Blood Pressure 175/95 H 159/79 H Pulse Oximetry 97 97 96 Oxygen Delivery Method Room Air Oxygen Flow Rate 0 Narrative Exam Narrative: Pleasant male sitting in chair in no acute distress Lungs: Clear to auscultation Cardiac exam: Irregular rate and rhythm normal S1-S2 Abdomen: Soft nontender nondistended Extremities: No edema Objective Labs Result Diagrams: 10/25/18 21:50 10/27/18 06:00 Labs: Laboratory Results - last 24 hr 10/27/18 10/27/18 10/27/18 02:36 02:36 06:00 Sodium 138 Potassium 3.9 Chloride 104 Carbon Dioxide 27 BUN 12 Creatinine 0.60 L Estimated GFR > 60.0 BUN/Creatinine Ratio 20.0 Glucose 141 H Calcium 9.1 Magnesium 1.8 Troponin I 0.100 H 10/27/18 11:10 Sodium Potassium Chloride Carbon Dioxide BUN Creatinine Estimated GFR BUN/Creatinine Ratio Glucose Calcium Magnesium Troponin I 0.177 H* Discharge Plan Discharge Plan Discharge Problem: Closed hip fracture, Hypertension Patient Disposition: Assisted Living Other facility: [facility] Living Transportation: [facility] I certify the postop hospital [facility] care is medically necessary on a continuing basis for any conditions for which he/ she received care during this hospitalization.: Yes The receiving facility has agreed to accept transfer and provide medical treatment.: Yes Discharge Med Rec/Prescriptions Prescriptions: New hydrocodone-acetaminophen 5-325 mg Tablet 1 tab PO Q4HR PRN (Reason: Pain, Severe (7-10)) 10 Days Qty: 20 RF: 0 aspirin 81 mg Tablet,Delayed Release (Dr/Ec) 81 mg PO DAILY 30 Days RF: 0 acetaminophen 325 mg Tablet 975 mg PO TID 7 Days Qty: 63 RF: 0 amlodipine [Norvasc] 5 mg Tablet 10 mg PO DAILY 30 Days RF: 0 losartan 50 mg Tablet 50 mg PO BID 30 Days Qty: 60 RF: 0 metoprolol succinate 25 mg Tablet Extended Release 24 Hr 75 mg PO BID 30 Days Qty: 180 RF: 0 Continued aspirin [Adult Low Dose Aspirin] 81 mg Tablet,Delayed Release (Dr/Ec) 81 mg PO DAILY RF: 0 amlodipine 10 mg Tablet 10 mg PO DAILY RF: 0 cholecalciferol (vitamin D3) [Vitamin D3] 1,000 unit Tablet 1,000 unit PO DAILY RF: 0 Discontinued losartan 50 mg Tablet 100 mg PO DAILY RF: 0 metoprolol succinate 100 mg Tablet Extended Release 24 Hr 100 mg PO DAILY RF: 0 tamsulosin 0.4 mg Capsule 0.4 mg PO DAILY RF: 0 furosemide 20 mg Tablet 20 mg PO QAM RF: 0 finasteride 5 mg Tablet 5 mg PO DAILY RF: 0 Discharge Orders: Discharge (Order); Ordered 10/27/18 Ordered By: Kelly Burrows Provider Discharge Instructions Diet: Low-sodium and Low-cholesterol Liquid consistency: Normal/Thin Food texture: Regular Activity: as tolerated Special Rehabilitation Services Reason for rehabilitation: Recovery r/t decondition Rehab type: Physical therapy and Occupational therapy Discharge Data Attending Provider: Stefania Johns Admit Date/Time: 10/25/18 22:20 Quality VTE Deep Vein Thrombosis/Pulmonary Embolism Present on Admission: No
--- NOTE | 2018-10-27 14:35 | PC.NURSE ---
Day shift: Pt taken to private car driven by family in WC by [employer] and this ghost writer. Pt's daughter has SNF packet. has singed medicine sheet. Pt has all personal belongings. Pt is 2ppl assist.
--- NOTE | 2018-10-27 15:06 | OT.IP.TRT ---
Current Diagnoses Hyperlipidemia, unspecified (10/25/18) Localized edema (10/25/18) Occupational Therapy Treatment Note M2 OT-IP Current Condition Start: 10/26/18 16:26 Freq: Status: Active Protocol: Document 10/27/18 14:48 CGR (Rec: 10/27/18 15:06 CGR [email or web address]) Occupational Therapy Current Condition Current Condition Evaluation Date 10/26/18 Treatment Diagnosis Fall with L hip pain Diagnosis Onset Date 10/25/18 M3 OT- IP Subjective and Pain Start: 10/26/18 16:26 Freq: Status: Active Protocol: Document 10/27/18 14:48 CGR (Rec: 10/27/18 15:06 CGR [email or web address]) OT- Subjective Occupational Therapy Visit Type Type Treatment Note Visit Start Time 10:31 Visit Stop Time 11:04 Total Visit Minutes 33 Notes co-treat with p.t. OT Pain Assessment Pain When Pain Assessed During Mobility Pain Present Pain Present Pain Reported Location Left Hip Intensity 8 Scale Used Numeric (1 - 10) Pain Behaviors Guarding M4 OT- IP ADL's Start: 10/26/18 16:26 Freq: Status: Active Protocol: Document 10/27/18 14:48 CGR (Rec: 10/27/18 15:06 CGR [email or web address]) OT ADL-Grooming General Evaluation Grooming Ability Standby Assistance Areas Needing Assistance Face Washing Comments OT Grooming Comments seated in chair OT ADL-Oral Care General Eval Oral Care Ability Standby Assistance Areas of Assistance Brushing Teeth Retrieving/Set-Up of Items Comments Oral Care Comments seated in chair OT ADL-Dressing General Eval Lower Body Dressing Ability Total Assistance Comments OT Dressing Comments Per daughter, pt used a sock aide to perform all LB dressing for many years. Socks donned for pt. OT ADL-Toileting Comments OT Toileting Comments not performed but pt with griffith OT ADL-Bathing Comments OT Bathing Comments not performed M5 OT- IP IADL's Start: 10/26/18 16:26 Freq: Status: Active Protocol: Document 10/26/18 16:26 CGR (Rec: 10/26/18 16:41 CGR [email or web address]) OT-Instrumental Activities of Daily Living Deficits IADL Deficits Identified Deficits Home Safety Awareness Awareness of Need for Assistance at Home Decreased Awareness Ability to Problem Solve Emergency Unable to Problem Solve Situations Home Safety Comments Pt is unable to rationalize his inability to mobilize as rational for not being discharge from the hospital. Medication Management Medication Management Caregiver Administers Money Management Money Management Caregiver Provides Assistance Meal Preparation Meal Preparation Caregiver Provides Assist Meal Preparation Comments Pt eats in the dining [facility] Economics Consultant Healthcare Economics Consultant Caregiver Provides Assist Driving Driving Comments Pt does not drive. M6 OT- IP Functional Cognition Start: 10/26/18 16:26 Freq: Status: Active Protocol: Document 10/27/18 14:48 CGR (Rec: 10/27/18 15:06 CGR [email or web address]) Cognitive Factors Limiting Selfcare Function Cognitive Ability Level of Alertness Alert Confusional State Attention Span Ability Unable to Sustain Attention Ability to Follow Commands Able to Follow One Step Commands with Increased Time Able to Follow One Step Commands with Repetition Cognitive Comments Cognitive Assessment Comments Pt had difficulty following commands throughout session. OT- Vision and Hearing OT- Vision Assessment Visual Acuity WFL Visual Attentiveness WFL Occular Pursuits WFL Visual Convergence WFL Visual Almazan WFL Diplopia Absent M7 OT- IP Mobility and Balance Start: 10/26/18 16:26 Freq: Status: Active Protocol: Document 10/27/18 14:48 CGR (Rec: 10/27/18 15:06 CGR [email or web address]) OT- Bed Mobility Assessment Rolling Level of Assistance Maximum Assistance 1 Person Assistance 2 Person Assistance Supine to Sit Supine to Sit Assist Maximum Assistance 1 Person Assistance 2 Person Assistance Scooting Scooting to Edge of Bed Maximum Assistance 1 Person Assistance 2 Person Assistance OT-Transfer Assessment Sit to and From Stand Sit to and from Stand Moderate Assistance Maximum Assistance 2 Person Assistance Transfers Transfer Ability Moderate Assistance Maximum Assistance 2 Person Assistance Technique Transfer Destination Chair Transfer Technique Stand Step Pivot Devices Transfer Assistive Devices Gait Belt Front Wheeled Walker Comments Mobility Comments Pt needs significant cues and physical assist for mobility on this date. M8 OT- IP Objective Assessments Start: 10/26/18 16:26 Freq: Status: Active Protocol: Document 10/27/18 14:48 CGR (Rec: 10/27/18 15:06 CGR [email or web address]) OT Gross Range of Motion Upper Extremity Range of Motion Assessment Right Impaired ROM Impairments Pt with limited R shld ROM from previous injury. OT Strength Upper Extremity Strength Assessment Within Functional Limits Comments Strength Comments Grossly 4/5 as seen with arm use for attempted transfer OT- Coordination Assessment Upper Extremity Finger to Nose Test Within Functional Limits Finger Tapping Test Within Functional Limits OT-Muscle Tone Assessment Muscle Tone WNL Yes M9 OT- IP Assessment and Plan Start: 10/26/18 16:26 Freq: Status: Active Protocol: Document 10/27/18 14:48 CGR (Rec: 10/27/18 15:06 CGR [email or web address]) OT Summary Assessment and Plan Potential Rehabilitation Potential Good Analytic Complexity at Evaluation Moderate Summary OT Impairments Pain Strength Balance Functional Cognition Functional Mobility Dressing Toileting Bathing Toilet Transfers Shower Transfers Progress Towards Goals Slow Progress due to Pain Slow Progress due to Cognition Assessment Summary Pt with increased mobility on this date compared to eval. Pt appears to do better in the AM. Pt will continue to benefit from OT services. Goals Grooming Goal Independent Dressing Goal Independent Toileting Goal Independent Bathing Goal Independent Toilet Transfer Goal Independent Shower Transfer Goal Independent Days to Meet Goals 5 Frequency of Treatment Frequency Of Treatment Once a Day Treatment Plan OT Treatment Plan ADL Training Functional Cognition Training Functional Mobility Patient/Family Education Discharge Planning Other Treatment Recommendations and Next ADLs standing. Treatment Focus Discharge Recommendations OT Discharge Recommendations Home with 24/7 Assist SNF Rehab Other Discharge Recommendations SNF vs 24 hour assist given current mobility.
[2018-10-28 14:04] LABS: Troponin I 0.177 ng/mL (0.01-0.034)
== END 2018-10-27 14:37 | disposition home health service (06) | DRG 535 ==
LOC: ED 22:20 → AC 23:21
PROVIDERS: Internal Medicine; Admitting Provider Nurse Practitioner Family; Emergency Provider Emergency Medicine; Visit Provider Nurse Practitioner Family
DX: S72.002A Fracture of unspecified part of neck of left femur, initial encounter for closed fracture (principal); I21.A1 Myocardial infarction type 2; I50.22 Chronic systolic (congestive) heart failure; I11.0 Hypertensive heart disease with heart failure; I48.2 Chronic atrial fibrillation; Z95.1 Presence of aortocoronary bypass graft; F03.90 Unspecified dementia, unspecified severity, without behavioral disturbance, psychotic disturbance, mood disturbance, and anxiety; I25.10 Atherosclerotic heart disease of native coronary artery without angina pectoris; E87.6 Hypokalemia; N40.0 Benign prostatic hyperplasia without lower urinary tract symptoms; W18.30XA Fall on same level, unspecified, initial encounter; Z91.81 History of falling; Z51.5 Encounter for palliative care
CPT/HCPCS: 36415; 51701; 71045; 72192; 73030; 73502; 80048; 80053; 81001; 83690; 83735; 83880; 84484; 85025; 86850; 86900; 86901; 87086; 93005; 93306; 97116; 97163; 97166; 97530; 99283; 99285; G0378; J0360; J1650; J2405; J3480; J7050